=== PATIENT | female | born 1950 | race Hispanic/Latino ===

== ENCOUNTER 2018-08-06 23:08 | Inpatient (IN) | payer MEDICARE, OTHER ==
--- NOTE | 2018-08-07 00:17 | C.PDOC ---
History Of Present Illness 67 year old female presents to the ED for evaluation of pain to bilateral lower extremities. Patient states her ankles and feet have been erythematous, swollen and painful for the past four months and symptoms have been worsening. She describes her pain as a burning sensation. Patient is concerned about congestive heart failure. She denies fever, chills, chest pain, and shortness of breath at this time. Time Seen by Provider: 08/06/18 23:28 Chief Complaint (Nursing): Lower Extremity Problem/Injury History Per: Patient History/Exam Limitations: no limitations Onset/Duration Of Symptoms: Other (around 4 months ) Current Symptoms Are (Timing): Worse Additional History Per: Patient Past Medical History Reviewed: Historical Data, Nursing Documentation, Vital Signs Vital Signs: Last Vital Signs Temp 98.2 F 08/06/18 23:14 Pulse 88 08/06/18 23:14 Resp 20 08/06/18 23:14 BP 151/78 H 08/06/18 23:14 Pulse Ox 97 08/06/18 23:14 - Medical History PMH: HTN, Hypothyroidism Surgical History: No Surg Hx Family History: States: Unknown Family Hx - Social History Hx Alcohol Use: No Hx Substance Use: No - Immunization History Hx Tetanus Toxoid Vaccination: No Hx Influenza Vaccination: No Hx Pneumococcal Vaccination: No Review Of Systems Constitutional: Negative for: Fever, Chills Cardiovascular: Negative for: Chest Pain Respiratory: Negative for: Shortness of Breath Musculoskeletal: Positive for: Other (bilateral lower extremity pain. erythema, swelling, and pain to ankles and feet ) Physical Exam - Physical Exam Appears: Non-toxic, No Acute Distress, Unkempt Skin: Normal Color, Warm, Dry Head: Atraumatic, Normacephalic Eye(s): bilateral: Normal Inspection Oral Mucosa: Moist Neck: Supple Chest: Symmetrical, No Deformity, No Tenderness Cardiovascular: Rhythm Regular, No Murmur Respiratory: Normal Breath Sounds, No Rales, No Rhonchi, No Wheezing Gastrointestinal/Abdominal: Soft, No Tenderness, No Guarding, No Rebound, Other (well-healed, midline surgical scar ) Extremity: Tenderness (to bilateral ankles and feet ), Capillary Refill (less than 2 seconds ), Swelling (bilateral legs ), Other (significant erythema to bilateral lower legs and feet, extending to mid-guillory region. venous stasis and weeping wounds noted. no pitting edema. ) Pulses: Left Dorsalis Pedis: Normal, Right Dorsalis Pedis: Normal Neurological/Psych: Oriented x3, Normal Speech, Normal Cognition, Normal Sensation ED Course And Treatment - Laboratory Results Result Diagrams: 08/06/18 23:59 08/06/18 23:59 O2 Sat by Pulse Oximetry: 97 (on RA ) Pulse Ox Interpretation: Normal Medical Decision Making Medical Decision Making: Impression: 67 year old female with pain to bilateral lower extremities Plan: * bloodwork * reassess and disposition Progress: bloodwork ordered and reviewed. Toradol ivpb ordered for pain. Lab results discussed with patient. Will treat for cellulitis- clindamycin ivpb x1 dose ordered. Case discussed with Dr. Mitchell who accepts patient to her service. Disposition - Disposition Disposition: HOSPITALIZED Disposition Time: 23:28 Condition: STABLE - Clinical Impression Clinical Impression: Cellulitis of both lower extremities - Scribe Statement The provider has reviewed the documentation as recorded by the Scribe (Sapna Liang) Provider Attestation: All medical record entries made by the Scribe were at my direction and personally dictated by me. I have reviewed the chart and agree that the record accurately reflects my personal performance of the history, physical exam, medical decision making, and the department course for this patient. I have also personally directed, reviewed, and agree with the discharge instructions and disposition.
[2018-08-07 00:18] LABS: ALB/GLOB RATIO 1.2 (1.0-2.1); ALBUMIN 4.1 g/dL (3.5-5.0); ALT/SGPT 23 U/L (9-52); AST/SGOT 18 U/L (14-36); BASO # 0.1 K/uL (0.0-0.2); BASO % 0.6 % (0.0-2.0); BLOOD UREA NITROGEN 16 mg/dL (7-17); CALCIUM 9.9 mg/dl (8.6-10.4); EOS # 0.2 K/uL (0.0-0.7); EOS % 1.9 % (0.0-4.0); GFR NON-AFRICAN AMERICAN > 60; HEMOGLOBIN 11.3 g/dL (11.0-16.0); LYMPH % 28.4 % (20.0-40.0); MEAN CORPUSCULAR HEMOGLOBIN 27.4 pg (27.0-31.0); MEAN CORPUSCULAR HGB CONC 32.2 g/dL (33.0-37.0); MEAN PLATELET VOLUME 7.2 fL (7.2-11.7); MONO # 0.7 K/uL (0.0-0.8); MONO % 6.5 % (0.0-10.0); NEUT # 6.6 K/uL (1.8-7.0); NEUT % 62.6 % (50.0-75.0); RBC 4.11 Mil/uL (3.80-5.20); RED CELL DISTRIBUTION WIDTH 14.5 % (11.5-14.5); WHITE BLOOD COUNT 10.5 K/uL (4.8-10.8)
[2018-08-07 00:26] LABS: B-TYPE NATRIURETIC PEPTIDE 57.3 pg/mL (0-900)
[2018-08-07] MEDS ORDERED: Clindamycin 600mg/50ml NS 600 MG/50 ML BAG IVPB ONE (00:56)
[2018-08-07] MEDS ORDERED: Levothyroxine 75 MCG TAB PO SCH (06:30)
[2018-08-07 08:21] LABS: BASO # 0.1 K/uL (0.0-0.2); BASO % 0.7 % (0.0-2.0); EOS # 0.2 K/uL (0.0-0.7); EOS % 2.4 % (0.0-4.0); HEMOGLOBIN 10.4 g/dL (11.0-16.0); LYMPH # 2.7 K/uL (1.0-4.3); LYMPH % 32.4 % (20.0-40.0); MEAN CELL VOLUME 84.8 fL (81.0-99.0); MEAN CORPUSCULAR HEMOGLOBIN 28.2 pg (27.0-31.0); MEAN CORPUSCULAR HGB CONC 33.3 g/dL (33.0-37.0); MEAN PLATELET VOLUME 7.1 fL (7.2-11.7); MONO # 0.6 K/uL (0.0-0.8); MONO % 6.7 % (0.0-10.0); NEUT # 4.8 K/uL (1.8-7.0); NEUT % 57.8 % (50.0-75.0); RBC 3.7 Mil/uL (3.80-5.20); RED CELL DISTRIBUTION WIDTH 14.5 % (11.5-14.5); WHITE BLOOD COUNT 8.3 K/uL (4.8-10.8)
[2018-08-07 08:25] LABS: ALB/GLOB RATIO 1.1 (1.0-2.1); ALBUMIN 3.6 g/dL (3.5-5.0); ALT/SGPT 24 U/L (9-52); AST/SGOT 16 U/L (14-36); BLOOD UREA NITROGEN 17 mg/dL (7-17); CALCIUM 9.5 mg/dl (8.6-10.4); GFR NON-AFRICAN AMERICAN > 60
--- NOTE | 2018-08-07 11:35 | CP.PCM.PN ---
Subjective - Date & Time of Evaluation Date of Evaluation: 08/07/18 Time of Evaluation: 11:35 - Subjective Subjective: H&P dictated #[id number] Objective - Vital Signs/Intake and Output Vital Signs (last 24 hours): Temp Pulse Resp BP Pulse Ox 98.1 F 74 16 155/71 H 97 08/07/18 02:20 08/07/18 02:20 08/07/18 02:20 08/07/18 02:20 08/07/18 05:28 - Medications Medications: Current Medications Allopurinol (Zyloprim) 100 mg PO DAILY [facility] Last Admin: 08/07/18 10:08 Dose: 100 mg Amlodipine Besylate (Norvasc) 5 mg PO DAILY [facility] Last Admin: 08/07/18 10:08 Dose: 5 mg Heparin Sodium (Porcine) (Heparin) 5,000 units SC Q12 [facility] Last Admin: 08/07/18 10:08 Dose: 5,000 units Levothyroxine Sodium (Synthroid) 75 mcg PO DAILY@0630 [facility] Last Admin: 08/07/18 06:41 Dose: 75 mcg - Labs Labs: 08/07/18 07:59 08/07/18 07:59
[2018-08-07] MEDS ORDERED: Piperacill/Tazo 3.375gm in Dex 3.375 GM/50 ML BAG IVPB SCH (11:45)
[2018-08-07] MEDS: Piperacill/Tazo 3.375gm in Dex 3.375 GM/50 ML BAG IVPB SCH ×2 (13:46→21:52)
--- NOTE | 2018-08-07 14:45 | CP.PCM.CON ---
History of Present Illness - History of Present Illness History of Present Illness: 67 year old female with painful swelling and erythema both legs for several months which has progressively gotten worse despite conservative measures by PMD in [place] Denies DM but has elevated blood sugar measurement No fever or c [place] Denies chest pain cough oir SOB - Medical History PMH: HTN, Hypothyroidism Surgical History: No Surg Hx Family History: States: Unknown Family Hx Review of Systems - Review of Systems All systems: reviewed and no additional remarkable complaints except - Constitutional Constitutional: As Per HPI - EENT Eyes: absent: As Per HPI, Blind Spots, Blurred Vision, Change in Vision, Decreased Night Vision, Diplopia, Discharge, Dry Eye, Exophthalmos, Floaters, Irritation, Itchy Eyes, Loss of Peripheral Vision, Pain, Photophobia, Requires Corrective Lenses, Sees Flashes, Spots in Vision, Tunnel Vision, Other Visual Disturbances, Loss of Vision, Other Ears: absent: As Per HPI, Decreased Hearing, Ear Discharge, Ear Pain, Tinnitus, Abnormal Hearing, Disequilibrium, Dizziness, Other Nose/Mouth/Throat: absent: As Per HPI, Epistaxis, Nasal Congestion, Nasal Discharge, Nasal Obstruction, Nasal Trauma, Nose Pain, Post Nasal Drip, Sinus Pain, Sinus Pressure, Bleeding Gums, Change in Voice, Dental Pain, Dry Mouth, Dysphagia, Halitosis, Hoarsness, Lip Swelling, Mouth Lesions, Mouth Pain, Odynophagia, Sore Throat, Throat Swelling, Tongue Swelling, Facial Pain, Neck Pain, Neck Mass, Other - Breasts Breasts: absent: As Per HPI, Change in Shape, Mass, Pain, Nipple Discharge, Nipple Inversion, Skin Changes, Swelling, Other - Cardiovascular Cardiovascular: As Per HPI - Respiratory Respiratory: absent: As Per HPI, Cough, Dyspnea, Hemoptysis, Dyspnea on Exertion, Wheezing, Snoring, Stridor, Pain on Inspiration, Chest Congestion, Excessive Mucous Production, Change in Mucous Color, Pain with Coughing, Other - Gastrointestinal Gastrointestinal: absent: As Per HPI, Abdominal Pain, Belching, Bloating, Change in Bowel Habits, Change in Stool Character, Coffee Ground Emesis, Constipation, Cramping, Diarrhea, Dyspepsia, Dysphagia, Early Satiety, Excessive Flatus, Fecal Incontinence, Heartburn, Hematemesis, Hematochezia, Loose Stools, Melena, Nausea, Odynophagia, Temesmus, Vomiting, Other - Genitourinary Genitourinary: absent: As Per HPI, Change in Urinary Stream, Difficulty Urinating, Dysuria, Flank Pain, Hematuria, Pyuria, Nocturia, Urinary Incontinence, Urinary Frequency, Urinary Hesitance, Urinary Urgency, Voiding Freq/Small Amts, Freq UTI, Hx Renal/Bladder Calculi, Hx /Renal Surgery, Bladder Distension, Other - Reproductive: Female Reproductive:Female: absent: As Per HPI, Amenorrhea, Amenorrhea/ Control, Currently Menstual, Cycle <21 Days, Cycle >35 Days, Cycle Variable, Menses 1-7 Days, Menses >/= 8 Days, Menses Variable, Cycle > 4 Weeks Between, No Menses for 6 Months, Heavy Menses, Light Menses, Normal Menses, Spotting Between Cycles, S/P Hysterectomy, Menopausal, Post Menopausal, Premenarche, Abnormal Vaginal Bleeding, Dysmenorrhea, Dyspareunia, Genital Lesions, Genital Pruritis, Pelvic Pain, Prolapse Symptoms, Sexual Dysfunction, Vaginal Discharge, Vaginal Dryness, Vaginal Odor, Vaginal Pruritis, Other - Menstruation Menstruation: absent: As Per HPI, Amenorrhea, Amenorrhea/ Control, Currently Menstual, Cycle <21 Days, Cycle >35 Days, Cycle Variable, Menses 1-7 Days, Menses >/= 8 Days, Menses Variable, Cycle > 4 Weeks Between, No Menses for 6 Months, Heavy Menses, Light Menses, Normal Menses, Spotting Between Cycles, S/P Hysterectomy, Menopausal, Post Menopausal, Premenarche, Abnormal Vaginal Bleeding, Dysmenorrhea, Other - Musculoskeletal Musculoskeletal: As Per HPI - Integumentary Integumentary: As Per HPI, Skin Pain, Wounds - Neurological Neurological: absent: As Per HPI, Abnormal Gait, Abnormal Hearing, Abnormal Movements, Abnormal Speech, Behavioral Changes, Burning Sensations, Confusion, Convulsions, Disequilibrium, Dizziness, Numbness, Focal Weakness, Frequent Falls, Headaches, Lack of Coordination, Loss of Vision, Memory Loss, Paresthesias, Radicular Pain, Restless Legs, Sensory Deficit, Syncope, Tingling, Tremor, Vertigo, Weakness, Other Visual Disturbances, Other - Psychiatric Psychiatric: absent: As Per HPI, Abnormal Sleep Pattern, Anhedonia, Anxiety, Auditory Hallucinations, Behavioral Changes, Change in Appetite, Change in Libido, Confusion, Depression, Difficulty Concentrating, Hallucinations, Homicidal Ideation, Hopelessness, Irritability, Memory Loss, Mood Swings, Panic Attacks, Paranoia, Suicidal Ideation, Visual Hallucinations, Tactile Hallucinations, Other - Endocrine Endocrine: absent: As Per HPI, Change in Body Appearance, Change in Libido, Cold Intolorance, Deepening of Voice, Excessive Sweating, Fatigue, Flushing, Heat Intolorance, Increase in Ring/Shoe/Hat Size, Palpitations, Polydipsia, Polyphagia, Polyuria, Other - Hematologic/Lymphatic Hematologic: absent: As Per HPI, Easy Bleeding, Easy Bruising, Lymphadenopathy, Other Past Patient History - Past Medical History & Family History Past Medical History?: Yes - Past Social History Smoking Status: Never Smoked - CARDIAC Hx Hypertension: Yes - ENDOCRINE/METABOLIC Hx Hypothyroidism: Yes - MUSCULOSKELETAL/RHEUMATOLOGICAL Hx Falls: No - PSYCHIATRIC Hx Substance Use: No - SURGICAL HISTORY Hx Tubal Ligation: Yes (1981) Other/Comment: gallstone removal unknown year, before the tubal ligation - ANESTHESIA Hx Anesthesia: Yes Hx Anesthesia Reactions: No Hx Malignant Hyperthermia: No Has any member of the family had a problem w/ anesthesia?: No Meds Allergies/Adverse Reactions: Allergies Allergy/AdvReac Type Severity Reaction Status Date / Time No Known Allergies Allergy Unverified 08/06/18 23:22 - Medications Medications: Current Medications Allopurinol (Zyloprim) 100 mg PO DAILY [facility] Last Admin: 08/07/18 10:08 Dose: 100 mg Amlodipine Besylate (Norvasc) 5 mg PO DAILY [facility] Last Admin: 08/07/18 10:08 Dose: 5 mg Glipizide (Glucotrol) 2.5 mg PO ACB [facility] Heparin Sodium (Porcine) (Heparin) 5,000 units SC Q12 [facility] Last Admin: 08/07/18 10:08 Dose: 5,000 units Piperacillin Sod/Tazobactam Sod (Zosyn 3.375 Gm Iv Premix) 3.375 gm in 50 mls @ 100 mls/hr IVPB Q8H [facility]; Protocol Last Admin: 08/07/18 13:46 Dose: 100 mls/hr Vancomycin HCl 1,000 mg/ (Sodium Chloride) 250 mls @ 166.6 mls/hr IVPB Q12H [facility]; Protocol Insulin Human Regular (Novolin R) 0 unit SC ACHS [facility]; Protocol Levothyroxine Sodium (Synthroid) 100 mcg PO DAILY@0630 [facility] Physical Exam - Constitutional Appears: Non-toxic, No Acute Distress, Chronically Ill - Head Exam Head Exam: ATRAUMATIC, NORMAL INSPECTION, NORMOCEPHALIC - Eye Exam Eye Exam: EOMI, PERRL. absent: Scleral icterus - ENT Exam ENT Exam: Mucous Membranes Dry - Neck Exam Neck exam: Negative for: Lymphadenopathy - Respiratory Exam Respiratory Exam: Decreased Breath Sounds, Clear to Auscultation Bilateral - Cardiovascular Exam Cardiovascular Exam: REGULAR RHYTHM, +S1, +S2 - GI/Abdominal Exam GI & Abdominal Exam: Diminished Bowel Sounds, Soft. absent: Tenderness - Rectal Exam Rectal Exam: Deferred - Exam Exam: NORMAL INSPECTION - Extremities Exam Extremities exam: Positive for: pedal edema, tenderness, pedal pulses present. Negative for: calf tenderness, normal inspection - Back Exam Back exam: absent: CVA tenderness (L), CVA tenderness (R), paraspinal tenderness - Neurological Exam Neurological exam: Alert, CN II-XII Intact, Oriented x3, Reflexes Normal - Psychiatric Exam Psychiatric exam: Depressed - Skin Skin Exam: Dry, Erythema Results - Vital Signs Recent Vital Signs: Last Vital Signs Temp 98.1 F 08/07/18 02:20 Pulse 74 08/07/18 02:20 Resp 16 08/07/18 02:20 BP 155/71 H 08/07/18 02:20 Pulse Ox 97 08/07/18 05:28 - Labs Result Diagrams: 08/07/18 07:59 08/07/18 07:59 Labs: Laboratory Results - last 24 hr 08/06/18 08/06/18 08/06/18 23:34 23:59 23:59 WBC 10.5 RBC 4.11 Hgb 11.3 Hct 35.0 MCV 85.0 MCH 27.4 MCHC 32.2 L RDW 14.5 Plt Count 408 H MPV 7.2 Neut % (Auto) 62.6 Lymph % (Auto) 28.4 [place] % (Auto) 6.5 Eos % (Auto) 1.9 Baso % (Auto) 0.6 Neut # (Auto) 6.6 Lymph # (Auto) 3.0 [place] # (Auto) 0.7 Eos # (Auto) 0.2 Baso # (Auto) 0.1 Sodium 138 Potassium 4.0 Chloride 98 Carbon Dioxide 32 H Anion Gap 12 BUN 16 Creatinine 0.7 Est GFR ( Amer) > 60 Est GFR (Non-Af Amer) > 60 POC Glucose (mg/dL) 259 H Random Glucose 269 H Hemoglobin A1c Calcium 9.9 Total Bilirubin 0.4 AST 18 ALT 23 Alkaline Phosphatase 102 NT-Pro-B Natriuret Pep 57.3 Total Protein 7.5 Albumin 4.1 Globulin 3.4 Albumin/Globulin Ratio 1.2 TSH 3rd Generation 08/07/18 08/07/18 08/07/18 07:59 07:59 07:59 WBC 8.3 RBC 3.70 L Hgb 10.4 L Hct 31.3 L MCV 84.8 MCH 28.2 MCHC 33.3 RDW 14.5 Plt Count 366 MPV 7.1 L Neut % (Auto) 57.8 Lymph % (Auto) 32.4 [place] % (Auto) 6.7 Eos % (Auto) 2.4 Baso % (Auto) 0.7 Neut # (Auto) 4.8 Lymph # (Auto) 2.7 [place] # (Auto) 0.6 Eos # (Auto) 0.2 Baso # (Auto) 0.1 Sodium 140 Potassium 4.0 Chloride 101 Carbon Dioxide 32 H Anion Gap 11 BUN 17 Creatinine 0.7 Est GFR ( Amer) > 60 Est GFR (Non-Af Amer) > 60 POC Glucose (mg/dL) Random Glucose 181 H Hemoglobin A1c 8.5 H Calcium 9.5 Total Bilirubin 0.4 AST 16 ALT 24 Alkaline Phosphatase 90 NT-Pro-B Natriuret Pep Total Protein 6.8 Albumin 3.6 Globulin 3.2 Albumin/Globulin Ratio 1.1 TSH 3rd Generation 18.10 H Assessment & Plan (1) Cellulitis of both lower extremities Status: Acute - Assessment and Plan (Free Text) Assessment: severe cellulitis likely secondary to venous stasis/ stasis dermatitis r/o PVD no evidence of sepsis, gangrene , OM at present IV antibiotics chosen empirically arterial and venous dopplers pending prognosis guarded
[2018-08-07] MEDS ORDERED: Vancomycin 1 gm/NS 200 ml 1 GM/200 ML BAG IVPB SCH (16:00)
--- NOTE | 2018-08-07 16:30 | RAD ---
Date of service: 08/07/2018 HISTORY: admit COMPARISON: Comparison is made with 09/13/2015 TECHNIQUE: Chest PA and lateral FINDINGS: LUNGS: No active pulmonary disease. PLEURA: No significant pleural effusion identified. No pneumothorax apparent. CARDIOVASCULAR: No aortic atherosclerotic calcification present. Normal cardiac size. No pulmonary vascular congestion. OSSEOUS STRUCTURES: No significant abnormalities. VISUALIZED UPPER ABDOMEN: Normal. OTHER FINDINGS: None. IMPRESSION: No active disease.
--- NOTE | 2018-08-07 16:50 | RAD ---
Date of service: 08/07/2018 PROCEDURE: Radiographs of the bilateral Tibiae and Fibulae. HISTORY: cellulitis COMPARISON: None available. TECHNIQUE: Frontal and lateral views obtained. FINDINGS: BONES: RIGHT TIBIA: No fracture or destructive lesion. LEFT TIBIA: No fracture or destructive lesion. JOINT SPACES: RIGHT TIBIA: Normal. LEFT TIBIA: Normal. SOFT TISSUES: RIGHT TIBIA: Normal. LEFT TIBIA: Normal. OTHER FINDINGS: None. IMPRESSION: Unremarkable radiographs of the bilateral tibia and fibula.
[2018-08-07 18:23] LABS: SQUAMOUS EPITHIAL 4 /hpf (0-5); URINE BACTERIA RARE (<OCC); URINE BILIRUBIN NEGATIVE (NEGATIVE); URINE BLOOD NEGATIVE (NEGATIVE); URINE CALCIUM OXALATE CRYSTALS MOD /hpf (<OCC); URINE CLARITY Hazy (Clear); URINE COLOR Yellow (YELLOW); URINE GLUCOSE (UA) NORMAL (Normal); URINE LEUKOCYTE ESTERASE NEG Leu/uL (Negative); URINE PROTEIN NEGATIVE (NEGATIVE); URINE UROBILINOGEN NORMAL mg/dL (0.2-1.0)
[2018-08-07] MEDS: (Novolin R) Insulin Human Regular 100 units/ml vial SC SCH ×2 (18:26→21:52)
[2018-08-08] MEDS: Piperacill/Tazo 3.375gm in Dex 3.375 GM/50 ML BAG IVPB SCH ×3 (05:05→22:10)
[2018-08-08] MEDS: Levothyroxine 100 MCG TAB PO SCH ×2 (05:47→05:51)
[2018-08-08] MEDS: GlipiZIDE 2.5 mg Tab PO SCH (07:54)
[2018-08-08] MEDS: (Novolin R) Insulin Human Regular 100 units/ml vial SC SCH ×4 (07:56→22:14)
--- NOTE | 2018-08-08 10:41 | HP ---
CHIEF COMPLAINT: Bilateral lower extremity leg swelling, pain and increasing redness, progressively getting worse over the past three to four months. HISTORY OF PRESENT ILLNESS: Ms. Aldana is a 67-year-old female with past medical history of hypertension, hypothyroidism. Has been following up with Dr. Camp from [place]. Came into the ED for evaluation of worsening lower extremity redness, swelling, and pain. History is obtained from the patient. As per the patient, she has been having worsening redness of the bilateral lower extremities below the knee with increased swelling, redness, and oozing and it was more painful and not able to ambulate yesterday which made her come to the emergency room. She denied any fever. Denied any headache or dizziness. Denied any chest pain, shortness of breath, or wheezing. Denied any nausea, vomiting, abdominal pain, diarrhea, or constipation. Denied any other neurologic symptoms. Denied any urinary symptoms. As per the patient, she was evaluated by Dr. Camp about two months ago. Had all the routine blood works done. As per her, all those tests were okay. PAST MEDICAL HISTORY: Hypothyroidism, hypertension. PAST SURGICAL HISTORY: Underwent cholecystectomy many years ago and tubal ligation. FAMILY HISTORY: Diabetes mellitus in mother and grandmother. Cancer and heart disease runs in the family. PERSONAL HISTORY: She is a , having two children, living alone. She works in post office. SOCIAL HISTORY: Denies any smoking, alcohol, or drug abuse. ALLERGIES: NO KNOWN DRUG ALLERGIES. HOME MEDICATIONS: Include amlodipine 5 mg daily, Synthroid 75 mcg daily, Lasix 20 mg daily, allopurinol 100 mg daily. REVIEW OF SYSTEMS: As described in history of present illness. All other systems reviewed and were found to be negative. PHYSICAL EXAMINATION: GENERAL: Elderly female, lying in bed, in no acute distress. VITAL SIGNS: Blood pressure 151/78, pulse 88, respirations 20, temperature 98.2 degrees Fahrenheit, O2 saturations 97% on room air. HEENT: Pupils equal, round, reacting to light and accommodation. Extraocular muscles intact. No icterus. No pallor. No oral thrush. No pharyngeal congestion. NECK: Supple. No JVD. LUNGS: Bilateral vesicular breath sounds. No wheezing. No rhonchi. CARDIOVASCULAR SYSTEM: S1 and S2 present, regular. ABDOMEN: Soft, nontender. Bowel sounds present. No guarding, no rigidity, no rebound tenderness noted. CENTRAL NERVOUS SYSTEM: Alert, awake, oriented x3. No focal deficits noted. EXTREMITIES: Bilateral lower extremity erythema present below the knees, extending into the foot. Tenderness present. Erythema present. Swelling present. Minimal oozing. Poorly palpable pulses. LABORATORY DATA: Labs done from the ED: WBC 10.5, hemoglobin 11.3, hematocrit 35, platelets 408. Sodium 138, potassium 4.2, chloride 98, bicarb 32, BUN 16, creatinine 0.7, glucose 259, hemoglobin A1c 8.5, calcium 9.9. AST 18, ALT 23, alkaline phosphatase 102. ProBNP is 57.3. Total protein 7.5, albumin 4.1. TSH 18.1. No EKG done. No foot x-ray done. ASSESSMENT: Elderly female with history of hypothyroidism, hypertension who has been following up with Dr. Camp from [place], came into the emergency department with 3 to 4-month history of bilateral lower extremity swelling, erythema, and increasing pain. In the emergency department, the patient was found to be having elevated glucose levels and her swelling is consistent with cellulitis, and the patient is being admitted for further management. 1. Bilateral lower extremity cellulitis with chronic venous changes. 2. Rule out peripheral arterial disease. 3. Newly diagnosed diabetes mellitus. 4. Worsening hypothyroidism. 5. Hypertension. PLAN: The patient is being admitted to the medical floor. We will give Zosyn 3.375 g IV every 8 hours along with vancomycin 1 g daily. Check arterial and venous Dopplers. Check blood cultures. Check EKG, chest x-ray, foot x-ray and check ultrasound of the abdomen. We will start glipizide 2.5 mg daily. Check Accu-Chek every before meals and at bedtime with sliding scale coverage. Increase Synthroid to 100 mcg daily. We will continue with DVT and GI prophylaxis. We will consider podiatry consult. We will request ID consult with Dr. Burch. We will add further recommendation as her clinical course progresses. Harris Mitchell MD
--- NOTE | 2018-08-08 11:05 | CP.PCM.PN ---
Subjective - Date & Time of Evaluation Date of Evaluation: 08/08/18 Time of Evaluation: 09:00 - Subjective Subjective: afeb cultures neg thus far Objective - Vital Signs/Intake and Output Vital Signs (last 24 hours): Temp Pulse Resp BP Pulse Ox 97.9 F 76 18 160/65 H 95 08/08/18 07:25 08/08/18 07:25 08/08/18 07:25 08/08/18 07:25 08/08/18 07:25 Intake and Output: 08/08/18 08/08/18 06:59 18:59 Intake Total 350 Balance 350 - Medications Medications: Current Medications Allopurinol (Zyloprim) 100 mg PO DAILY [facility] Last Admin: 08/07/18 10:08 Dose: 100 mg Amlodipine Besylate (Norvasc) 5 mg PO DAILY [facility] Last Admin: 08/07/18 10:08 Dose: 5 mg Glipizide (Glucotrol) 2.5 mg PO ACB [facility] Last Admin: 08/08/18 07:54 Dose: Not Given Heparin Sodium (Porcine) (Heparin) 5,000 units SC Q12 [facility] Last Admin: 08/07/18 21:52 Dose: 5,000 units Piperacillin Sod/Tazobactam Sod (Zosyn 3.375 Gm Iv Premix) 3.375 gm in 50 mls @ 100 mls/hr IVPB Q8H [facility]; Protocol Last Admin: 08/08/18 05:05 Dose: 100 mls/hr Vancomycin HCl 1,000 mg/ (Sodium Chloride) 250 mls @ 166.6 mls/hr IVPB Q12H [facility] ; Protocol Last Admin: 08/08/18 05:45 Dose: 166.6 mls/hr Insulin Human Regular (Novolin R) 0 unit SC ACHS [facility]; Protocol Last Admin: 08/08/18 07:56 Dose: Not Given Levothyroxine Sodium (Synthroid) 100 mcg PO DAILY@0630 [facility] Last Admin: 08/08/18 05:51 Dose: 100 mcg - Labs Labs: 08/07/18 07:59 08/07/18 07:59 - Constitutional Appears: Non-toxic, Chronically Ill - Head Exam Head Exam: NORMOCEPHALIC - Eye Exam Eye Exam: absent: Scleral icterus - ENT Exam ENT Exam: Mucous Membranes Dry - Neck Exam Neck Exam: absent: Lymphadenopathy - Respiratory Exam Respiratory Exam: Decreased Breath Sounds - Cardiovascular Exam Cardiovascular Exam: REGULAR RHYTHM - GI/Abdominal Exam GI & Abdominal Exam: Distended, Soft - Rectal Exam Rectal Exam: Deferred - Exam Exam: NORMAL INSPECTION - Extremities Exam Extremities Exam: Pedal Edema. absent: Calf Tenderness, Joint Swelling - Back Exam Back Exam: absent: CVA tenderness (L), CVA tenderness (R), paraspinal tenderness - Neurological Exam Neurological Exam: Alert, Awake, CN II-XII Intact, Oriented x3 - Psychiatric Exam Psychiatric exam: Depressed - Skin Skin Exam: Dry Assessment and Plan (1) Cellulitis of both lower extremities Status: Acute - Assessment and Plan (Free Text) Assessment: cont iv rx and wound care as ordered
--- NOTE | 2018-08-08 11:34 | US ---
Abdominal ultrasound HISTORY: Follow-up. Abdominal pain. Comparison: None available. Technique: Real-time sonography was performed through the abdomen. Findings: Liver: 20.4 centimeters in length. Increased echogenicity of the hepatic parenchymal cortex suggestive for fatty infiltration versus hepatic parenchymal disease. Clinical correlation. Gallbladder: Prior cholecystectomy. Common bile duct measures 4.5 millimeters, within normal limits. Limited visualization of the pancreas. Spleen measures 11.7 centimeters in length, within normal limits. Visualized aorta and IVC are preserved. Right kidney: 13.3 x 4.6 x 4.5 centimeters. No calculi or hydronephrosis. Left Kidney: 12.3 x 6.3 x 5.7 centimeters. No calculi or hydronephrosis. Impression: 1. Prominent liver measuring 20.4 centimeters in length. Increased echogenicity of the hepatic parenchymal cortex suggestive for fatty infiltration versus hepatic parenchymal disease. Clinical correlation. 2. Prior cholecystectomy. 3. Limited visualization of the pancreas.
--- NOTE | 2018-08-08 11:53 | CP.PCM.PN ---
Subjective - Date & Time of Evaluation Date of Evaluation: 08/08/18 Time of Evaluation: 11:53 - Subjective Subjective: Progress note dictated #[id number] Objective - Vital Signs/Intake and Output Vital Signs (last 24 hours): Temp Pulse Resp BP Pulse Ox 97.9 F 76 18 160/65 H 95 08/08/18 07:25 08/08/18 07:25 08/08/18 07:25 08/08/18 07:25 08/08/18 07:25 Intake and Output: 08/08/18 08/08/18 06:59 18:59 Intake Total 350 Balance 350 - Medications Medications: Current Medications Allopurinol (Zyloprim) 100 mg PO DAILY [facility] Last Admin: 08/08/18 11:45 Dose: 100 mg Amlodipine Besylate (Norvasc) 10 mg PO DAILY [facility] Glipizide (Glucotrol) 2.5 mg PO ACB [facility] Last Admin: 08/08/18 07:54 Dose: Not Given Heparin Sodium (Porcine) (Heparin) 5,000 units SC Q12 [facility] Last Admin: 08/08/18 11:45 Dose: 5,000 units Piperacillin Sod/Tazobactam Sod (Zosyn 3.375 Gm Iv Premix) 3.375 gm in 50 mls @ 100 mls/hr IVPB Q8H [facility]; Protocol Last Admin: 08/08/18 05:05 Dose: 100 mls/hr Vancomycin HCl 1,000 mg/ (Sodium Chloride) 250 mls @ 166.6 mls/hr IVPB Q12H [facility]; Protocol Last Admin: 08/08/18 05:45 Dose: 166.6 mls/hr Insulin Human Regular (Novolin R) 0 unit SC ACHS [facility]; Protocol Last Admin: 08/08/18 07:56 Dose: Not Given Levothyroxine Sodium (Synthroid) 100 mcg PO DAILY@0630 [facility] Last Admin: 08/08/18 05:51 Dose: 100 mcg - Labs Labs: 08/07/18 07:59 08/07/18 07:59
--- NOTE | 2018-08-08 12:17 | VASCLAB ---
Date of service: 08/08/2018 PROCEDURE: Lower Extremity Venous Duplex Exam. HISTORY: Pain, Swelling, r/o dvt PRIORS: None. TECHNIQUE: Bilateral common femoral, femoral, popliteal and posterior tibial, peroneal and great saphenous veins were evaluated. Flow was assessed with color Doppler, compressibility, assessment of phasic flow and augmentation response. Report prepared by ADALGISA [place] FINDINGS: RIGHT: 1. Common Femoral Vein: 1.1. Compressibility - Fully compressible: Thrombus - None : Flow - Phasic: Augmentation -Normal: Reflux - None. 2. Femoral Vein: 2.1. Compressibility - Fully compressible: Thrombus - None : Flow - Phasic: Augmentation -Normal: Reflux - None. 3. Popliteal Vein: 3.1. Compressibility - Fully compressible: Thrombus - None : Flow - Phasic: Augmentation -Normal: Reflux - None. 4. Posterior Tibial Vein: 4.1. Unable to visualize due to swelling. 5. Peroneal Vein: 5.1. Unable to visualize due to swelling. 6. Great Saphenous Vein: 6.1. Compressibility - Fully compressible: Thrombus - None: Flow - Phasic: Augmentation - Normal: Reflux - None. LEFT: 1. Common Femoral Vein: 1.1. Compressibility - Fully compressible: Thrombus - None: Flow - Phasic: Augmentation -Normal: Reflux - None. 2. Femoral Vein: 2.1. Compressibility - Fully compressible: Thrombus - None: Flow - Phasic: Augmentation -Normal: Reflux - None. 3. Popliteal Vein: 3.1. Compressibility - Fully compressible: Thrombus - None : Flow - Phasic: Augmentation -Normal: Reflux - None. 4. Posterior Tibial Vein: 4.1. Unable to visualize due to swelling. 5. Peroneal Vein: 5.1. Unable to visualize due to swelling. 6. Great Saphenous Vein: 6.1. Compressibility - Fully compressible: Thrombus - None: Flow - Phasic: Augmentation - Normal: Reflux - None. OTHER FINDINGS: Bilateral calf veins were not visualized due to edema. IMPRESSION: No evidence of deep or superficial vein thrombosis of bilateral lower extremities, for the examined veins.
--- NOTE | 2018-08-08 12:18 | VASCLAB ---
Date of service: 08/08/2018 STUDY DESCRIPTION: Lower Extremity Arterial Exam (PVR). HISTORY: Cellulitis PRIORS: None. TECHNIQUE: Pulse volume recording waveforms and segmental pressures of bilateral lower extremities at multiple levels were obtained. Ankle Brachial Indices (ABIs) were calculated. Report prepared by ADALGISA [place] RIGHT LOWER EXTREMITY: * Brachial artery: Pressure - 173 mmHg. * High thigh: Pressure - >220 mmHg: Ratio - N/C: PVR waveform - Pulsatile * Low thigh: Pressure - >220 mmHg: Ratio - N/C PVR waveform: Pulsatile * Calf: Pressure - >220 mmHg: Ratio - N/C PVR waveform: Pulsatile * Posterior tibial Artery: Pressure - 211 mmHg: Ratio - 1.15 PVR waveform: Pulsatile * Dorsalis pedis Artery: Pressure - 181 mmHg: Ratio - 0.98 PVR waveform: Pulsatile Ankle brachial index (MARCE): 1.15 LEFT LOWER EXTREMITY: * Brachial artery: Pressure - 184 mmHg. * High thigh: Pressure - >220 mmHg: Ratio - N/C: PVR waveform - Pulsatile * Low thigh: Pressure - >220 mmHg: Ratio - N/C PVR waveform: Pulsatile * Calf: Pressure - >220 mmHg: Ratio - N/C PVR waveform: Pulsatile * Posterior tibial Artery: Pressure - 212 mmHg: Ratio - 1.15 PVR waveform: Pulsatile * Dorsalis pedis Artery: Pressure - 192 mmHg: Ratio - 1.04 PVR waveform: Pulsatile Ankle brachial index (MARCE): 1.15 OTHER FINDINGS: Normal arterial PVR waveforms and normal ankle brachial indices, suggesting normal arterial perfusion, at rest. IMPRESSION: Right: There was no evidence of hemodynamically significant arterial insufficiency in the right lower extremity. Left: There was no evidence of hemodynamically significant arterial insufficiency in the left lower extremity.
--- NOTE | 2018-08-09 01:56 | PN ---
DATE: 08/08/2018 SUBJECTIVE: The patient was seen and examined at bedside. The patient is feeling slightly better. Less pain in the lower extremities. Denies any other new complaints. PHYSICAL EXAMINATION: GENERAL: Elderly female lying in bed in no acute distress. VITAL SIGNS: Blood pressure 160/65, pulse 76, respirations 18, temperature 97.9 degrees Fahrenheit, O2 sat is 95% on room air. HEENT: Pupils equal, round, reacting to light and accommodation. Extraocular muscles are intact. No icterus. No pallor. No oral thrush. No pharyngeal congestion. NECK: Supple. No JVD. LUNGS: Bilateral vesicular breath sounds. No wheezing. No rhonchi. CARDIOVASCULAR SYSTEM: S1 and S2 present, regular. ABDOMEN: Soft, nontender. Bowel sounds present. No guarding. No rigidity. No rebound tenderness noted. CENTRAL NERVOUS SYSTEM: Alert, awake, oriented x3. No focal deficits noted. EXTREMITIES: Bilateral lower extremity erythema, slightly better than yesterday. Swelling present. Tenderness present. Multiple healing ulcers present. MEDICATIONS: Include amlodipine 10 mg daily, glipizide 2.5 mg daily, heparin 5000 units subcutaneous every 12 hours, Synthroid 100 mcg daily, Zosyn 3.375 g IV every 8 hours, vancomycin 1 g IV every 12 hours. LABORATORY DATA: Accu-Cheks today 195, 179, 158, 142. UA is negative. Blood cultures, urine culture negative so far. Lower extremity arterial Doppler, no evidence of deep or superficial vein thrombosis of bilateral lower extremities. Arterial Doppler negative. Ultrasound of the abdomen, prominent liver, increased echogenicity suggestive of fatty infiltration. ASSESSMENT AND PLAN: Elderly female with history of hypertension, gout, hypothyroidism, admitted for bilateral lower extremity cellulitis. Arterial and venous Dopplers are negative for any peripheral artery disease or thrombosis. Newly diagnosed diabetes mellitus. Blood pressure is high. The patient claims that she has been taking amlodipine 10 mg at home. Will continue with 10 mg of amlodipine daily. We will restart Lasix 20 mg daily in the morning. Continue with Synthroid. Repeat hemoglobin A1c. We will continue with Accu-Chek before meals and bedtime. We will follow up with Dr. Burch regarding the length of intravenous antibiotics. If the patient is better, the patient would like to be transferred to subacute rehab. We will request drug abuse social worker for discharge planning. Harris Mitchell MD Job # [id number]
[2018-08-09] MEDS: Piperacill/Tazo 3.375gm in Dex 3.375 GM/50 ML BAG IVPB SCH ×3 (05:37→22:06)
[2018-08-09] MEDS: Levothyroxine 100 MCG TAB PO SCH (05:44)
[2018-08-09 07:53] LABS: BASO # 0.1 K/uL (0.0-0.2); BASO % 0.8 % (0.0-2.0); EOS # 0.2 K/uL (0.0-0.7); EOS % 2.2 % (0.0-4.0); HEMOGLOBIN 10.7 g/dL (11.0-16.0); LYMPH # 2.3 K/uL (1.0-4.3); LYMPH % 29.5 % (20.0-40.0); MEAN CELL VOLUME 84.7 fL (81.0-99.0); MEAN CORPUSCULAR HEMOGLOBIN 27.8 pg (27.0-31.0); MEAN CORPUSCULAR HGB CONC 32.8 g/dL (33.0-37.0); MONO # 0.5 K/uL (0.0-0.8); NEUT # 4.8 K/uL (1.8-7.0); NEUT % 61.5 % (50.0-75.0); RBC 3.84 Mil/uL (3.80-5.20); RED CELL DISTRIBUTION WIDTH 14.7 % (11.5-14.5); WHITE BLOOD COUNT 7.8 K/uL (4.8-10.8)
[2018-08-09] MEDS: (Novolin R) Insulin Human Regular 100 units/ml vial SC SCH ×4 (08:13→22:32)
[2018-08-09 08:14] LABS: ALBUMIN 3.4 g/dL (3.5-5.0); ALT/SGPT 24 U/L (9-52); AST/SGOT 21 U/L (14-36); BLOOD UREA NITROGEN 16 mg/dL (7-17); CALCIUM 8.7 mg/dl (8.6-10.4); GFR NON-AFRICAN AMERICAN > 60
[2018-08-09] MEDS: GlipiZIDE 2.5 mg Tab PO SCH ×2 (08:14→08:35)
--- NOTE | 2018-08-09 11:13 | CP.PCM.PN ---
Subjective - Date & Time of Evaluation Date of Evaluation: 08/09/18 Time of Evaluation: 11:13 - Subjective Subjective: Progress note dictated # [id number] Objective - Vital Signs/Intake and Output Vital Signs (last 24 hours): Temp Pulse Resp BP Pulse Ox 98 F 74 20 160/68 H 95 08/09/18 07:00 08/09/18 07:00 08/09/18 07:00 08/09/18 07:00 08/09/18 07:00 Intake and Output: 08/09/18 08/09/18 06:59 18:59 Intake Total 900 Balance 900 - Medications Medications: Current Medications Allopurinol (Zyloprim) 100 mg PO DAILY [facility] Last Admin: 08/09/18 09:39 Dose: 100 mg Amlodipine Besylate (Norvasc) 10 mg PO DAILY [facility] Last Admin: 08/09/18 09:39 Dose: 10 mg Glipizide (Glucotrol) 2.5 mg PO ACB [facility] Last Admin: 08/09/18 08:35 Dose: Not Given Heparin Sodium (Porcine) (Heparin) 5,000 units SC Q12 [facility] Last Admin: 08/09/18 09:39 Dose: 5,000 units Piperacillin Sod/Tazobactam Sod (Zosyn 3.375 Gm Iv Premix) 3.375 gm in 50 mls @ 100 mls/hr IVPB Q8H [facility]; Protocol Last Admin: 08/09/18 05:37 Dose: 100 mls/hr Vancomycin HCl 1,000 mg/ (Sodium Chloride) 250 mls @ 166.6 mls/hr IVPB Q12H [facility]; Protocol Last Admin: 08/09/18 05:41 Dose: 166.6 mls/hr Insulin Human Regular (Novolin R) 0 unit SC ACHS [facility]; Protocol Last Admin: 08/09/18 08:13 Dose: 1 units Levothyroxine Sodium (Synthroid) 100 mcg PO DAILY@0630 [facility] Last Admin: 08/09/18 05:44 Dose: 100 mcg - Labs Labs: 08/09/18 07:47 08/09/18 07:47
--- NOTE | 2018-08-09 11:23 | CP.PCM.PN ---
Subjective - Date & Time of Evaluation Date of Evaluation: 08/09/18 Time of Evaluation: 08:00 - Subjective Subjective: afeb less pain and swelling need min 10 days IV rx with close follow up Objective - Vital Signs/Intake and Output Vital Signs (last 24 hours): Temp Pulse Resp BP Pulse Ox 98 F 74 20 160/68 H 95 08/09/18 07:00 08/09/18 07:00 08/09/18 07:00 08/09/18 07:00 08/09/18 07:00 Intake and Output: 08/09/18 08/09/18 06:59 18:59 Intake Total 900 Balance 900 - Medications Medications: Current Medications Allopurinol (Zyloprim) 100 mg PO DAILY [facility] Last Admin: 08/09/18 09:39 Dose: 100 mg Amlodipine Besylate (Norvasc) 10 mg PO DAILY [facility] Last Admin: 08/09/18 09:39 Dose: 10 mg Glipizide (Glucotrol) 2.5 mg PO ACB [facility] Last Admin: 08/09/18 08:35 Dose: Not Given Heparin Sodium (Porcine) (Heparin) 5,000 units SC Q12 [facility] Last Admin: 08/09/18 09:39 Dose: 5,000 units Piperacillin Sod/Tazobactam Sod (Zosyn 3.375 Gm Iv Premix) 3.375 gm in 50 mls @ 100 mls/hr IVPB Q8H [facility]; Protocol Last Admin: 08/09/18 05:37 Dose: 100 mls/hr Vancomycin HCl 1,000 mg/ (Sodium Chloride) 250 mls @ 166.6 mls/hr IVPB Q12H [facility]; Protocol Last Admin: 08/09/18 05:41 Dose: 166.6 mls/hr Insulin Human Regular (Novolin R) 0 unit SC ACHS [facility]; Protocol Last Admin: 08/09/18 08:13 Dose: 1 units Levothyroxine Sodium (Synthroid) 100 mcg PO DAILY@0630 [facility] Last Admin: 08/09/18 05:44 Dose: 100 mcg - Labs Labs: 08/09/18 07:47 08/09/18 07:47 - Constitutional Appears: Non-toxic, Chronically Ill - Head Exam Head Exam: NORMOCEPHALIC - Eye Exam Eye Exam: absent: Scleral icterus - ENT Exam ENT Exam: Mucous Membranes Dry - Neck Exam Neck Exam: absent: Lymphadenopathy - Respiratory Exam Respiratory Exam: Decreased Breath Sounds - Cardiovascular Exam Cardiovascular Exam: REGULAR RHYTHM - GI/Abdominal Exam GI & Abdominal Exam: Distended, Soft. absent: Tenderness - Rectal Exam Rectal Exam: Deferred - Exam Exam: NORMAL INSPECTION - Extremities Exam Extremities Exam: Pedal Edema, Tenderness - Back Exam Back Exam: absent: CVA tenderness (L), CVA tenderness (R) - Neurological Exam Neurological Exam: Alert, Awake, Oriented x3 - Psychiatric Exam Psychiatric exam: Depressed - Skin Skin Exam: Dry Assessment and Plan (1) Cellulitis of both lower extremities Status: Acute - Assessment and Plan (Free Text) Assessment: cont iv rx for min 10 days
[2018-08-09] MEDS: Ammonium Lactate 12% Lotion (225 g) EXT SCH ×3 (14:00→22:06)
--- NOTE | 2018-08-09 23:35 | PN ---
DATE: 08/09/2018 SUBJECTIVE: The patient was seen and examined at bedside. The patient is feeling slightly better. Pain in the lower extremities is better. Denies any new complaints. PHYSICAL EXAMINATION GENERAL: An elderly female lying in bed in no acute distress. VITAL SIGNS: Blood pressure 149/71, pulse 82, respirations 20, temperature 97.8 degrees Fahrenheit, O2 sat is 95% on room air. HEENT: Pupils equal, round, reacting to light and accommodation. Extraocular muscles intact. No icterus. No pallor. No oral thrush. No pharyngeal congestion. NECK: Supple. No JVD. LUNGS: Bilateral vesicular breath sounds. No wheezing. No rhonchi. CARDIOVASCULAR SYSTEM: S1 and S2 present, regular. ABDOMEN: Soft, nontender. Bowel sounds present. No guarding. No rigidity. No rebound tenderness noted. CENTRAL NERVOUS SYSTEM: Alert, awake, oriented x3. No focal deficits noted. EXTREMITIES: Bilateral lower extremity erythema, improving. Multiple ulcerations healing. Palpable peripheral pulses. MEDICATIONS: Include allopurinol 100 mg daily, Norvasc 10 mg daily, Lasix 20 mg daily, glipizide 2.5 mg daily, heparin 5000 units subcutaneously every 12 hours, Lac-Hydrin cream, Synthroid 100 mcg daily, Zosyn 3.375 g IV every 8 hours, vancomycin 1 g IV every 12 hours. LABORATORY DATA: Labs done from today; WBC 7.8, hemoglobin 10.7, hematocrit 32.6, platelets 372. Sodium 138, potassium 4, chloride 104, bicarb 27, BUN 16, creatinine 0.8, glucose 157 and calcium 8.7. Hemoglobin A1c 8.6. Liver function test within normal limits, vancomycin trough 9.3. Blood cultures and urine culture negative so far. ASSESSMENT AND PLAN: An elderly female with history of hypertension, hypothyroidism, gout admitted for bilateral lower extremity cellulitis with chronic venous changes and newly diagnosed diabetes mellitus. Her cellulitis is improving on Zosyn and vancomycin. Blood pressure is high, on Norvasc, we will restart her Lasix 20 mg daily. All the cultures are negative so far. Accu-Cheks are fair with glipizide. Continue with current antibiotics. The patient claims that she does not have a place to go. Discussed with social work professor, discussed with Dr. Burch recommending IV antibiotics for at least 10 days. professional services consultant to make arrangements for subacute rehab placement. PICC line requested. We will continue with physical therapy. We will add further recommendation as her clinical course progresses. Harris Mitchell MD
[2018-08-10] MEDS: Piperacill/Tazo 3.375gm in Dex 3.375 GM/50 ML BAG IVPB SCH ×3 (05:03→22:14)
[2018-08-10] MEDS: Levothyroxine 100 MCG TAB PO SCH ×2 (05:52→05:58)
[2018-08-10] MEDS: GlipiZIDE 2.5 mg Tab PO SCH (08:00)
[2018-08-10] MEDS: (Novolin R) Insulin Human Regular 100 units/ml vial SC SCH ×4 (08:15→21:24)
[2018-08-10] MEDS: Ammonium Lactate 12% Lotion (225 g) EXT SCH ×4 (10:15→22:14)
--- NOTE | 2018-08-10 10:28 | RAD ---
Date of service: 08/10/2018 HISTORY: verify right PICC COMPARISON: 08/07/2018 FINDINGS: LUNGS: No active pulmonary disease. PLEURA: No significant pleural effusion identified, no pneumothorax apparent. CARDIOVASCULAR: No aortic atherosclerotic calcification present. Normal cardiac size. No congestive change. New right PICC catheter terminates at the level of the cavoatrial junction. OSSEOUS STRUCTURES: No significant abnormalities. VISUALIZED UPPER ABDOMEN: Normal. OTHER FINDINGS: None. IMPRESSION: New right PICC catheter terminates at the level of the cavoatrial junction. No infiltrate.
--- NOTE | 2018-08-10 12:18 | CP.PCM.PN ---
Subjective - Date & Time of Evaluation Date of Evaluation: 08/10/18 Time of Evaluation: 12:18 - Subjective Subjective: Progress note dictated #[id number] Objective - Vital Signs/Intake and Output Vital Signs (last 24 hours): Temp Pulse Resp BP Pulse Ox 97.7 F 69 20 151/74 H 97 08/10/18 07:15 08/10/18 07:15 08/10/18 07:15 08/10/18 11:25 08/10/18 07:15 Intake and Output: 08/10/18 08/10/18 06:59 18:59 Intake Total 340 Balance 340 - Medications Medications: Current Medications Allopurinol (Zyloprim) 100 mg PO DAILY [facility] Last Admin: 08/10/18 11:24 Dose: 100 mg Amlodipine Besylate (Norvasc) 10 mg PO DAILY [facility] Last Admin: 08/10/18 11:25 Dose: 10 mg Furosemide (Lasix) 20 mg PO DAILY [facility] Last Admin: 08/10/18 11:25 Dose: 20 mg Glipizide (Glucotrol) 2.5 mg PO ACB [facility] Last Admin: 08/10/18 08:00 Dose: 2.5 mg Piperacillin Sod/Tazobactam Sod (Zosyn 3.375 Gm Iv Premix) 3.375 gm in 50 mls @ 100 mls/hr IVPB Q8H [facility]; Protocol Last Admin: 08/10/18 05:03 Dose: 100 mls/hr Vancomycin HCl 1,000 mg/ (Sodium Chloride) 250 mls @ 166.6 mls/hr IVPB Q12H [facility]; Protocol Last Admin: 08/10/18 05:53 Dose: 166.6 mls/hr Insulin Human Regular (Novolin R) 0 unit SC ACHS [facility]; Protocol Last Admin: 08/10/18 11:26 Dose: 1 units Lactic Acid (Lac-Hydrin 12% Lotion (225 G)) 1 gm EXT QID [facility] Last Admin: 08/10/18 10:15 Dose: 1 applic Levothyroxine Sodium (Synthroid) 100 mcg PO DAILY@0630 [facility] Last Admin: 08/10/18 05:58 Dose: 100 mcg - Labs Labs: 08/09/18 07:47 08/09/18 07:47
--- NOTE | 2018-08-10 18:44 | CP.PCM.PN ---
Subjective - Date & Time of Evaluation Date of Evaluation: 08/10/18 Time of Evaluation: 08:00 - Subjective Subjective: improving on IV rx wound care helping Objective - Vital Signs/Intake and Output Vital Signs (last 24 hours): Temp Pulse Resp BP Pulse Ox 97.9 F 84 20 143/88 97 08/10/18 15:12 08/10/18 15:12 08/10/18 15:12 08/10/18 15:12 08/10/18 15:12 Intake and Output: 08/10/18 08/10/18 06:59 18:59 Intake Total 340 Balance 340 - Medications Medications: Current Medications Allopurinol (Zyloprim) 100 mg PO DAILY [facility] Last Admin: 08/10/18 11:24 Dose: 100 mg Amlodipine Besylate (Norvasc) 10 mg PO DAILY [facility] Last Admin: 08/10/18 11:25 Dose: 10 mg Furosemide (Lasix) 20 mg PO DAILY [facility] Last Admin: 08/10/18 11:25 Dose: 20 mg Glipizide (Glucotrol) 2.5 mg PO ACB [facility] Last Admin: 08/10/18 08:00 Dose: 2.5 mg Piperacillin Sod/Tazobactam Sod (Zosyn 3.375 Gm Iv Premix) 3.375 gm in 50 mls @ 100 mls/hr IVPB Q8H [facility]; Protocol Last Admin: 08/10/18 13:40 Dose: 100 mls/hr Vancomycin HCl 1,000 mg/ (Sodium Chloride) 250 mls @ 166.6 mls/hr IVPB Q12H [facility]; Protocol Last Admin: 08/10/18 18:15 Dose: 166.6 mls/hr Insulin Human Regular (Novolin R) 0 unit SC ACHS [facility]; Protocol Last Admin: 08/10/18 11:26 Dose: 1 units Lactic Acid (Lac-Hydrin 12% Lotion (225 G)) 1 gm EXT QID [facility] Last Admin: 08/10/18 18:16 Dose: 1 applic Levothyroxine Sodium (Synthroid) 100 mcg PO DAILY@0630 [facility] Last Admin: 08/10/18 05:58 Dose: 100 mcg - Labs Labs: 08/09/18 07:47 08/09/18 07:47 - Constitutional Appears: Non-toxic, Chronically Ill - Head Exam Head Exam: NORMOCEPHALIC - Eye Exam Eye Exam: absent: Scleral icterus - ENT Exam ENT Exam: Mucous Membranes Dry - Neck Exam Neck Exam: absent: Lymphadenopathy - Respiratory Exam Respiratory Exam: Decreased Breath Sounds - Cardiovascular Exam Cardiovascular Exam: REGULAR RHYTHM - GI/Abdominal Exam GI & Abdominal Exam: Distended, Soft - Rectal Exam Rectal Exam: Deferred - Exam Exam: NORMAL INSPECTION - Extremities Exam Extremities Exam: Pedal Edema, Tenderness. absent: Calf Tenderness, Normal Capillary Refill Assessment and Plan (1) Cellulitis of both lower extremities Status: Acute - Assessment and Plan (Free Text) Assessment: cont iv rx and wound care
--- NOTE | 2018-08-10 19:29 | PN ---
DATE: 08/10/2018 SUBJECTIVE: The patient was seen and examined at bedside. The patient is feeling much better, denies any new complaints. Leg pains are improving. PHYSICAL EXAMINATION: GENERAL: On examination, an elderly female, sitting in chair, in no acute distress. VITAL SIGNS: Blood pressure 151/74, pulse 69, respirations 20, temperature 97.7 degrees Fahrenheit, and O2 saturations 97% on room air. HEENT: Pupils equal, round, and reacting to light and accommodation. Extraocular muscles are intact. No icterus, no pallor, no oral thrush, no pharyngeal congestion. NECK: Supple, no JVD. LUNGS: Bilateral vesicular breath sounds. No wheezing, no rhonchi. CVS: S1 and S2 present, regular. ABDOMEN: Soft, nontender. Bowel sounds present. No guarding, no rigidity, no rebound tenderness noted. CENTRAL NERVOUS SYSTEM: Alert, awake, and oriented x 3. No focal deficits noted. EXTREMITIES: Bilateral lower extremity erythema present, multiple healing scabs present. Erythema is improving, tenderness present. MEDICATIONS: Include allopurinol 100 mg daily, Norvasc 10 mg daily, Lasix 20 mg daily, Glucotrol 2.5 mg daily, Lac-Hydrin 1 g four times a day, Synthroid 100 mcg daily, Zosyn 3.375 g IV every 8 hours, and vancomycin 1 g IV every 12 hours. LABORATORY DATA: Accu-Cheks 161, 165, 151, 155, and 196. ASSESSMENT AND PLAN: An elderly female with history of hypertension and hypothyroidism, got admitted for bilateral lower extremity cellulitis and newly diagnosed diabetes mellitus. The patient's symptoms are improving on Zosyn and vancomycin. Continue with current antibiotics. The patient had earlier. Her blood pressure is fairly better. We will monitor the blood pressures. Continue with Norvasc and Lasix. Social service is to make arrangements for possible subacute rehab placement when bed available. The patient is otherwise hemodynamically stable for transfer when bed available. Harris Mitchell MD
[2018-08-11] MEDS: Piperacill/Tazo 3.375gm in Dex 3.375 GM/50 ML BAG IVPB SCH ×3 (05:02→22:52)
[2018-08-11] MEDS: Levothyroxine 100 MCG TAB PO SCH (06:02)
[2018-08-11] MEDS: (Novolin R) Insulin Human Regular 100 units/ml vial SC SCH ×4 (07:32→22:52)
[2018-08-11] MEDS: GlipiZIDE 2.5 mg Tab PO SCH (08:30)
[2018-08-11] MEDS: Ammonium Lactate 12% Lotion (225 g) EXT SCH ×4 (10:19→22:52)
--- NOTE | 2018-08-11 16:37 | CP.PCM.PN ---
Subjective - Date & Time of Evaluation Date of Evaluation: 08/11/18 Time of Evaluation: 16:37 - Subjective Subjective: Progress note dictated # [id number] Objective - Vital Signs/Intake and Output Vital Signs (last 24 hours): Temp Pulse Resp BP Pulse Ox 97.8 F 76 20 142/78 97 08/11/18 15:00 08/11/18 15:00 08/11/18 15:00 08/11/18 15:00 08/11/18 15:00 Intake and Output: 08/11/18 08/11/18 06:59 18:59 Intake Total 350 400 Balance 350 400 - Medications Medications: Current Medications Allopurinol (Zyloprim) 100 mg PO DAILY [facility] Last Admin: 08/11/18 10:18 Dose: 100 mg Amlodipine Besylate (Norvasc) 10 mg PO DAILY [facility] Last Admin: 08/11/18 10:18 Dose: 10 mg Furosemide (Lasix) 20 mg PO DAILY [facility] Last Admin: 08/11/18 10:16 Dose: 20 mg Glipizide (Glucotrol) 2.5 mg PO ACB [facility] Last Admin: 08/11/18 08:30 Dose: 2.5 mg Piperacillin Sod/Tazobactam Sod (Zosyn 3.375 Gm Iv Premix) 3.375 gm in 50 mls @ 100 mls/hr IVPB Q8H [facility]; Protocol Last Admin: 08/11/18 14:09 Dose: 100 mls/hr Vancomycin HCl 1,000 mg/ (Sodium Chloride) 250 mls @ 166.6 mls/hr IVPB Q12H [facility]; Protocol Last Admin: 08/11/18 05:01 Dose: 166.6 mls/hr Insulin Human Regular (Novolin R) 0 unit SC ACHS [facility]; Protocol Last Admin: 08/11/18 11:54 Dose: 1 units Lactic Acid (Lac-Hydrin 12% Lotion (225 G)) 1 gm EXT QID [facility] Last Admin: 08/11/18 14:10 Dose: 1 applic Levothyroxine Sodium (Synthroid) 100 mcg PO DAILY@0630 [facility] Last Admin: 08/11/18 06:02 Dose: 100 mcg - Labs Labs: 08/09/18 07:47 08/09/18 07:47
--- NOTE | 2018-08-11 19:14 | CP.PCM.PN ---
Subjective - Date & Time of Evaluation Date of Evaluation: 08/11/18 Time of Evaluation: 08:00 - Subjective Subjective: events noted will check vanco level cont wound care Objective - Vital Signs/Intake and Output Vital Signs (last 24 hours): Temp Pulse Resp BP Pulse Ox 97.8 F 76 20 142/78 97 08/11/18 15:00 08/11/18 15:00 08/11/18 15:00 08/11/18 15:00 08/11/18 15:00 Intake and Output: 08/11/18 08/12/18 18:59 06:59 Intake Total 400 Balance 400 - Medications Medications: Current Medications Allopurinol (Zyloprim) 100 mg PO DAILY [facility] Last Admin: 08/11/18 10:18 Dose: 100 mg Amlodipine Besylate (Norvasc) 10 mg PO DAILY [facility] Last Admin: 08/11/18 10:18 Dose: 10 mg Furosemide (Lasix) 20 mg PO DAILY [facility] Last Admin: 08/11/18 10:16 Dose: 20 mg Glipizide (Glucotrol) 2.5 mg PO ACB [facility] Last Admin: 08/11/18 08:30 Dose: 2.5 mg Piperacillin Sod/Tazobactam Sod (Zosyn 3.375 Gm Iv Premix) 3.375 gm in 50 mls @ 100 mls/hr IVPB Q8H [facility]; Protocol Last Admin: 08/11/18 14:09 Dose: 100 mls/hr Vancomycin HCl 1,000 mg/ (Sodium Chloride) 250 mls @ 166.6 mls/hr IVPB Q12H [facility]; Protocol Last Admin: 08/11/18 17:35 Dose: 166.6 mls/hr Insulin Human Regular (Novolin R) 0 unit SC ACHS [facility]; Protocol Last Admin: 08/11/18 17:30 Dose: Not Given Lactic Acid (Lac-Hydrin 12% Lotion (225 G)) 1 gm EXT QID [facility] Last Admin: 08/11/18 17:35 Dose: 1 applic Levothyroxine Sodium (Synthroid) 100 mcg PO DAILY@0630 [facility] Last Admin: 08/11/18 06:02 Dose: 100 mcg - Labs Labs: 08/09/18 07:47 08/09/18 07:47 - Constitutional Appears: Non-toxic, Chronically Ill - Head Exam Head Exam: NORMOCEPHALIC - Eye Exam Eye Exam: absent: Scleral icterus - ENT Exam ENT Exam: Mucous Membranes Dry - Neck Exam Neck Exam: absent: Lymphadenopathy - Respiratory Exam Respiratory Exam: Decreased Breath Sounds - Cardiovascular Exam Cardiovascular Exam: REGULAR RHYTHM - GI/Abdominal Exam GI & Abdominal Exam: Diminished Bowel Sounds Assessment and Plan (1) Cellulitis of both lower extremities Status: Acute
--- NOTE | 2018-08-12 02:51 | PN ---
DATE: 08/11/2018 SUBJECTIVE: The patient was seen and examined at bedside. The patient denies any new complaints. Her leg pains are improving. PHYSICAL EXAMINATION: GENERAL: Elderly female, lying in bed, in no acute distress. VITAL SIGNS: Blood pressure 142/78, pulse 76, respirations 20, temperature 97.8 degree Fahrenheit, O2 sat is 97% on room air. HEENT: Pupils are equal, round, and reacting to light and accommodation. Extraocular muscles intact. No icterus. No pallor. No oral thrush. No pharyngeal congestion. NECK: Supple. No JVD. LUNGS: Bilateral vesicular breath sounds. No wheezing. No rhonchi. CARDIOVASCULAR SYSTEM: S1 and S2 present, regular. ABDOMEN: Soft and nontender. Bowel sounds present. No guarding. No rigidity. No rebound tenderness noted. CENTRAL NERVOUS SYSTEM: Alert, awake, oriented x3. No focal deficits noted. EXTREMITIES: Bilateral lower extremity erythema present, tenderness present but improving erythema. MEDICATIONS: Include allopurinol 100 mg daily, Norvasc 10 mg daily, Lasix 20 mg daily, glipizide 2.5 mg daily, Lac-Hydrin cream, Synthroid 100 mcg daily, vancomycin 1 g every 12 hours. LABORATORY DATA: Accu-Cheks 139, 150, 175, 92, 374. Wound culture consistent with Staphylococcus aureus, blood cultures negative. ASSESSMENT AND PLAN: Elderly female with history of hypertension, hypothyroidism, and gout, admitted for bilateral lower extremity cellulitis, wound culture consistent with Staphylococcus aureus, blood cultures negative, newly diagnosed diabetes mellitus. Vascular studies negative for any coronary artery disease. Continue with amlodipine and Lasix. Blood pressure is fairly okay. Continue with the glipizide. We will increase glipizide if sugars are uncontrolled. Continue with Zosyn and vancomycin. Awaiting possible subacute rehab placement for completion of the intravenous antibiotics. We will follow up with long term care social worker for discharge planning. Harris Mitchell MD
[2018-08-12] MEDS: Piperacill/Tazo 3.375gm in Dex 3.375 GM/50 ML BAG IVPB SCH ×2 (06:04→14:12)
[2018-08-12] MEDS: Levothyroxine 100 MCG TAB PO SCH (06:04)
[2018-08-12 07:41] LABS: BASO % 0.6 % (0.0-2.0); EOS # 0.2 K/uL (0.0-0.7); EOS % 2.7 % (0.0-4.0); LYMPH # 2.1 K/uL (1.0-4.3); LYMPH % 28.5 % (20.0-40.0); MEAN CELL VOLUME 85.4 fL (81.0-99.0); MEAN CORPUSCULAR HEMOGLOBIN 27.5 pg (27.0-31.0); MEAN CORPUSCULAR HGB CONC 32.2 g/dL (33.0-37.0); MEAN PLATELET VOLUME 6.8 fL (7.2-11.7); MONO # 0.5 K/uL (0.0-0.8); MONO % 7.1 % (0.0-10.0); NEUT # 4.4 K/uL (1.8-7.0); NEUT % 61.1 % (50.0-75.0); NRBC % 0.1 % (0.0-2.0); RBC 4.34 Mil/uL (3.80-5.20); RED CELL DISTRIBUTION WIDTH 14.9 % (11.5-14.5); WHITE BLOOD COUNT 7.3 K/uL (4.8-10.8)
[2018-08-12 08:10] LABS: ALB/GLOB RATIO 1.1 (1.0-2.1); ALBUMIN 3.9 g/dL (3.5-5.0); ALT/SGPT 42 U/L (9-52); AST/SGOT 37 U/L (14-36); BLOOD UREA NITROGEN 11 mg/dL (7-17); CALCIUM 9.2 mg/dl (8.6-10.4); GFR NON-AFRICAN AMERICAN 55
[2018-08-12] MEDS: GlipiZIDE 2.5 mg Tab PO SCH (08:38)
[2018-08-12] MEDS: Ammonium Lactate 12% Lotion (225 g) EXT SCH ×4 (10:15→22:30)
[2018-08-12] MEDS: (Novolin R) Insulin Human Regular 100 units/ml vial SC SCH ×4 (13:11→22:30)
[2018-08-12 15:48] VITALS: RESP 20
--- NOTE | 2018-08-12 15:49 | CP.PCM.PN ---
Subjective - Date & Time of Evaluation Date of Evaluation: 08/12/18 Time of Evaluation: 15:49 - Subjective Subjective: Progress note dictated # [id number] Objective - Vital Signs/Intake and Output Vital Signs (last 24 hours): Temp Pulse Resp BP Pulse Ox 97.7 F 78 20 127/72 95 08/12/18 15:00 08/12/18 15:00 08/12/18 15:00 08/12/18 15:00 08/12/18 15:00 Intake and Output: 08/12/18 08/12/18 06:59 18:59 Intake Total 700 Balance 700 - Medications Medications: Current Medications Allopurinol (Zyloprim) 100 mg PO DAILY [facility] Last Admin: 08/12/18 10:13 Dose: 100 mg Amlodipine Besylate (Norvasc) 10 mg PO DAILY [facility] Last Admin: 08/12/18 10:13 Dose: 10 mg Furosemide (Lasix) 20 mg PO DAILY [facility] Last Admin: 08/12/18 10:13 Dose: 20 mg Glipizide (Glucotrol) 2.5 mg PO ACB [facility] Last Admin: 08/12/18 08:38 Dose: 2.5 mg Vancomycin HCl 1,000 mg/ (Sodium Chloride) 250 mls @ 166.6 mls/hr IVPB Q12H [facility]; Protocol Last Admin: 08/12/18 06:52 Dose: 166.6 mls/hr Insulin Human Regular (Novolin R) 0 unit SC ACHS [facility]; Protocol Last Admin: 08/12/18 13:12 Dose: Not Given Lactic Acid (Lac-Hydrin 12% Lotion (225 G)) 1 gm EXT QID [facility] Last Admin: 08/12/18 14:12 Dose: 1 applic Levothyroxine Sodium (Synthroid) 100 mcg PO DAILY@0630 [facility] Last Admin: 08/12/18 06:04 Dose: 100 mcg - Labs Labs: 08/12/18 07:34 08/12/18 07:34
--- NOTE | 2018-08-12 18:17 | CP.PCM.PN ---
Subjective - Date & Time of Evaluation Date of Evaluation: 08/12/18 Time of Evaluation: 10:00 - Subjective Subjective: improving iv rx in progress Objective - Vital Signs/Intake and Output Vital Signs (last 24 hours): Temp Pulse Resp BP Pulse Ox 97.7 F 78 20 127/72 95 08/12/18 15:00 08/12/18 15:00 08/12/18 15:00 08/12/18 15:00 08/12/18 15:00 Intake and Output: 08/12/18 08/12/18 06:59 18:59 Intake Total 700 Balance 700 - Medications Medications: Current Medications Allopurinol (Zyloprim) 100 mg PO DAILY [facility] Last Admin: 08/12/18 10:13 Dose: 100 mg Amlodipine Besylate (Norvasc) 10 mg PO DAILY [facility] Last Admin: 08/12/18 10:13 Dose: 10 mg Furosemide (Lasix) 20 mg PO DAILY [facility] Last Admin: 08/12/18 10:13 Dose: 20 mg Glipizide (Glucotrol) 2.5 mg PO ACB [facility] Last Admin: 08/12/18 08:38 Dose: 2.5 mg Vancomycin HCl 1,000 mg/ (Sodium Chloride) 250 mls @ 166.6 mls/hr IVPB Q12H [facility]; Protocol Last Admin: 08/12/18 06:52 Dose: 166.6 mls/hr Insulin Human Regular (Novolin R) 0 unit SC ACHS [facility]; Protocol Last Admin: 08/12/18 13:12 Dose: Not Given Lactic Acid (Lac-Hydrin 12% Lotion (225 G)) 1 gm EXT QID [facility] Last Admin: 08/12/18 14:12 Dose: 1 applic Levothyroxine Sodium (Synthroid) 100 mcg PO DAILY@0630 [facility] Last Admin: 08/12/18 06:04 Dose: 100 mcg - Labs Labs: 08/12/18 07:34 08/12/18 07:34 - Constitutional Appears: Non-toxic, Chronically Ill - Head Exam Head Exam: NORMOCEPHALIC - Eye Exam Eye Exam: absent: Scleral icterus - ENT Exam ENT Exam: Mucous Membranes Dry - Neck Exam Neck Exam: absent: Lymphadenopathy - Respiratory Exam Respiratory Exam: Decreased Breath Sounds - Cardiovascular Exam Cardiovascular Exam: REGULAR RHYTHM - GI/Abdominal Exam GI & Abdominal Exam: Distended, Soft - Rectal Exam Rectal Exam: Deferred - Exam Exam: NORMAL INSPECTION - Extremities Exam Extremities Exam: absent: Pedal Edema - Back Exam Back Exam: absent: CVA tenderness (L), CVA tenderness (R) - Neurological Exam Neurological Exam: Alert, Awake, Oriented x3 Neuro motor strength exam: Left Upper Extremity: 5, Right Upper Extremity: 5, Left Lower Extremity: 5, Right Lower Extremity: 5 - Psychiatric Exam Psychiatric exam: Normal Mood - Skin Skin Exam: Dry Assessment and Plan (1) Cellulitis of both lower extremities Status: Acute - Assessment and Plan (Free Text) Assessment: cont iv rx as ordered
--- NOTE | 2018-08-13 01:05 | PN ---
DATE: 08/12/2018 SUBJECTIVE: The patient was seen and examined at bedside. The patient offers no new complaints. Her leg pain is improving. PHYSICAL EXAMINATION: GENERAL: Elderly female, lying in bed, in no acute distress. VITAL SIGNS: Blood pressure 127/72, pulse 78, respirations 20, temperature 97.7 degrees Fahrenheit, O2 sat is 95% on room air. HEENT: Pupils equal, round, and reacting to light and accommodation. Extraocular muscles intact. No icterus. No pallor. No oral thrush. No pharyngeal congestion. NECK: Supple. No JVD. LUNGS: Bilateral vesicular breath sounds. No wheezing, no rhonchi. CARDIOVASCULAR SYSTEM: S1 and S2 present, regular. ABDOMEN: Soft. Nontender. Bowel sounds present. No guarding. No rigidity. No rebound tenderness noted. CENTRAL NERVOUS SYSTEM: Alert, awake, oriented x3. No focal deficits noted. EXTREMITIES: Bilateral lower extremity erythema improving. Swelling improving. Scabs are healing. MEDICATIONS: Include allopurinol 100 mg daily, amlodipine 10 mg daily, Lasix 20 mg daily, Glucotrol 2.5 mg daily, Lac-Hydrin cream, Synthroid 100 mEq p.o. daily, Zosyn 3.375 g IV every 6 hours, vancomycin 1 g IV every 12 hours. LABS FROM THIS MORNING: WBC 7.3, hemoglobin 12, hematocrit 37.1, platelets 420. Sodium 138, potassium 4.7, chloride 101, bicarb 29, BUN 11, creatinine 1, glucose 139, calcium 9.2, phosphorus 4.2, magnesium 2, AST 37, ALT 42, alkaline phosphatase 98, total protein 7.5, albumin 3.9. ASSESSMENT AND PLAN: Elderly female with history of hypertension, hypothyroidism, gout, admitted for bilateral leg cellulitis, wound culture growing Staph aureus, newly diagnosed diabetes mellitus, improving symptoms on Zosyn and vancomycin. Blood pressure is stable on Norvasc and Lasix. We will continue with current antibiotics and current antihypertensives. Accu-Cheks are fair. We will repeat labs in a.m., awaiting for subacute rehab placement. Continue with deep venous thrombosis and gastrointestinal prophylaxis. Harris Mitchell MD
[2018-08-13] MEDS: Levothyroxine 100 MCG TAB PO SCH (06:32)
[2018-08-13] MEDS: GlipiZIDE 2.5 mg Tab PO SCH (08:40)
[2018-08-13] MEDS: (Novolin R) Insulin Human Regular 100 units/ml vial SC SCH ×4 (08:40→23:12)
[2018-08-13] MEDS: Ammonium Lactate 12% Lotion (225 g) EXT SCH ×4 (09:32→22:00)
--- NOTE | 2018-08-13 13:27 | CP.PCM.PN ---
Subjective - Date & Time of Evaluation Date of Evaluation: 08/13/18 Time of Evaluation: 13:15 - Subjective Subjective: Progress note dictated #[id number] Objective - Vital Signs/Intake and Output Vital Signs (last 24 hours): Temp Pulse Resp BP Pulse Ox 97.6 F 78 20 146/76 20 L 08/13/18 07:00 08/13/18 07:00 08/13/18 07:00 08/13/18 09:28 08/13/18 07:00 - Medications Medications: Current Medications Allopurinol (Zyloprim) 100 mg PO DAILY [facility] Last Admin: 08/13/18 09:28 Dose: 100 mg Amlodipine Besylate (Norvasc) 10 mg PO DAILY [facility] Last Admin: 08/13/18 09:28 Dose: 10 mg Furosemide (Lasix) 20 mg PO DAILY [facility] Last Admin: 08/13/18 09:28 Dose: 20 mg Glipizide (Glucotrol) 2.5 mg PO ACB [facility] Last Admin: 08/13/18 08:40 Dose: 2.5 mg Insulin Human Regular (Novolin R) 0 unit SC [facility]; Protocol Last Admin: 08/13/18 12:28 Dose: Not Given Lactic Acid (Lac-Hydrin 12% Lotion (225 G)) 1 gm EXT QID [facility] Last Admin: 08/13/18 09:32 Dose: 1 applic Levothyroxine Sodium (Synthroid) 100 mcg PO DAILY@0630 [facility] Last Admin: 08/13/18 06:32 Dose: 100 mcg - Labs Labs: 08/12/18 07:34 08/12/18 07:34
[2018-08-13] MEDS: Piperacill/Tazo 3.375gm in Dex 3.375 GM/50 ML BAG IVPB SCH ×2 (14:29→23:13)
[2018-08-13] MEDS: Vancomycin 1 gm/NS 200 ml 1 GM/200 ML BAG IVPB SCH (18:12)
--- NOTE | 2018-08-13 18:26 | PN ---
DATE: 08/13/2018 SUBJECTIVE: The patient was seen and examined at bedside. The patient offers no new complaints. PHYSICAL EXAMINATION GENERAL: Elderly female, lying in bed, in no acute distress. VITAL SIGNS: Blood pressure 143/78, pulse 78, respirations 20, temperature 97.6 degrees Fahrenheit, O2 sat is 96% on room air. HEENT: Pupils equal, round and reacting to light and accommodation. Extraocular muscles intact. No icterus. No pallor. No oral thrush. No pharyngeal congestion. NECK: Supple. No JVD. No thyromegaly. CHEST: Moving equally bilaterally on respiration. LUNGS: Bilateral vesicular breath sounds. No wheezing, no rhonchi. CARDIOVASCULAR SYSTEM: S1 and S2 present, regular. ABDOMEN: Soft. Nontender. Bowel sounds present. No guarding. No rigidity. No rebound tenderness noted. CENTRAL NERVOUS SYSTEM: Alert, awake, oriented x3. No focal deficits noted. EXTREMITIES: Bilateral lower extremity erythema present, swelling decreasing, tenderness decreasing. MEDICATIONS: Include allopurinol 100 mg daily, Norvasc 10 mg daily, Lasix 20 mg daily, Glucotrol 2.5 mg daily, Lac-Hydrin cream, Synthroid 100 mcg daily, Zosyn 3.375 g IV every 8 hours, vancomycin 1 g IV every 12 hours. LABORATORY DATA: Accu-Cheks: 194,192,172, 162 and 106. ASSESSMENT AND PLAN: Elderly female with hypertension, hypothyroidism and gout, admitted for newly diagnosed diabetes mellitus and bilateral lower extremity cellulitis. On intravenous antibiotics. Blood pressure is stable. Accu-Cheks are fair. The patient is awaiting for subacute rehab placement for completion of the intravenous antibiotics. We will continue with current antibiotics, follow up with [employer] for discharge planning. Harris Mitchell MD
[2018-08-14] MEDS: Piperacill/Tazo 3.375gm in Dex 3.375 GM/50 ML BAG IVPB SCH ×3 (02:16→13:40)
[2018-08-14] MEDS: Vancomycin 1 gm/NS 200 ml 1 GM/200 ML BAG IVPB SCH (05:09)
[2018-08-14] MEDS: Levothyroxine 100 MCG TAB PO SCH (06:21)
[2018-08-14] MEDS: (Novolin R) Insulin Human Regular 100 units/ml vial SC SCH ×4 (08:04→22:09)
[2018-08-14] MEDS: GlipiZIDE 2.5 mg Tab PO SCH (08:10)
[2018-08-14] MEDS: Ammonium Lactate 12% Lotion (225 g) EXT SCH ×4 (10:32→22:10)
--- NOTE | 2018-08-14 14:44 | CP.PCM.PN ---
Subjective - Date & Time of Evaluation Date of Evaluation: 08/14/18 Time of Evaluation: 09:00 - Subjective Subjective: afeb this am nad Objective - Vital Signs/Intake and Output Vital Signs (last 24 hours): Temp Pulse Resp BP Pulse Ox 98.0 F 76 20 120/66 95 08/14/18 07:00 08/14/18 07:00 08/14/18 07:00 08/14/18 10:32 08/14/18 07:00 Intake and Output: 08/14/18 08/14/18 06:59 18:59 Intake Total 650 370 Balance 650 370 - Medications Medications: Current Medications Allopurinol (Zyloprim) 100 mg PO DAILY [facility] Last Admin: 08/14/18 10:32 Dose: 100 mg Amlodipine Besylate (Norvasc) 10 mg PO DAILY [facility] Last Admin: 08/14/18 10:32 Dose: 10 mg Furosemide (Lasix) 20 mg PO DAILY [facility] Last Admin: 08/14/18 10:32 Dose: 20 mg Glipizide (Glucotrol) 2.5 mg PO ACB [facility] Last Admin: 08/14/18 08:10 Dose: 2.5 mg Piperacillin Sod/Tazobactam Sod (Zosyn 3.375 Gm Iv Premix) 3.375 gm in 50 mls @ 100 mls/hr IVPB Q6H [facility]; Protocol Last Admin: 08/14/18 13:40 Dose: 100 mls/hr Vancomycin/Sodium Chloride (Vancomycin 1 Gm/Ns 200 Ml) 1 gm in 200 mls @ 133.333 mls/hr IVPB Q12H [facility]; Protocol Stop: 08/18/18 18:01 Last Admin: 08/14/18 05:09 Dose: 133.333 mls/hr Insulin Human Regular (Novolin R) 0 unit SC ACHS [facility]; Protocol Last Admin: 08/14/18 12:27 Dose: 1 units Lactic Acid (Lac-Hydrin 12% Lotion (225 G)) 1 gm EXT QID [facility] Last Admin: 08/14/18 13:40 Dose: 1 applic Levothyroxine Sodium (Synthroid) 100 mcg PO DAILY@0630 [facility] Last Admin: 08/14/18 06:21 Dose: 100 mcg - Labs Labs: 08/12/18 07:34 08/12/18 07:34 - Constitutional Appears: Non-toxic - Head Exam Head Exam: NORMOCEPHALIC - Eye Exam Eye Exam: absent: Scleral icterus - ENT Exam ENT Exam: Mucous Membranes Dry - Neck Exam Neck Exam: absent: Lymphadenopathy - Respiratory Exam Respiratory Exam: Decreased Breath Sounds - Cardiovascular Exam Cardiovascular Exam: REGULAR RHYTHM - GI/Abdominal Exam GI & Abdominal Exam: Distended, Soft - Rectal Exam Rectal Exam: Deferred - Exam Exam: NORMAL INSPECTION Assessment and Plan (1) Cellulitis of both lower extremities Status: Acute - Assessment and Plan (Free Text) Assessment: cont rx
--- NOTE | 2018-08-14 17:25 | CP.PCM.PN ---
Subjective - Date & Time of Evaluation Date of Evaluation: 08/14/18 Time of Evaluation: 17:25 - Subjective Subjective: Progress note dictated #[id number] Objective - Vital Signs/Intake and Output Vital Signs (last 24 hours): Temp Pulse Resp BP Pulse Ox 98.0 F 76 20 120/66 95 08/14/18 07:00 08/14/18 07:00 08/14/18 07:00 08/14/18 10:32 08/14/18 07:00 Intake and Output: 08/14/18 08/14/18 06:59 18:59 Intake Total 650 370 Balance 650 370 - Medications Medications: Current Medications Allopurinol (Zyloprim) 100 mg PO DAILY [facility] Last Admin: 08/14/18 10:32 Dose: 100 mg Amlodipine Besylate (Norvasc) 10 mg PO DAILY [facility] Last Admin: 08/14/18 10:32 Dose: 10 mg Furosemide (Lasix) 20 mg PO DAILY [facility] Last Admin: 08/14/18 10:32 Dose: 20 mg Glipizide (Glucotrol) 2.5 mg PO ACB [facility] Last Admin: 08/14/18 08:10 Dose: 2.5 mg Cefazolin Sodium 1,000 mg/ (Sodium Chloride) 100 mls @ 100 mls/hr IVPB Q8H [facility]; Protocol Insulin Human Regular (Novolin R) 0 unit SC ACHS [facility]; Protocol Last Admin: 08/14/18 16:59 Dose: Not Given Lactic Acid (Lac-Hydrin 12% Lotion (225 G)) 1 gm EXT QID [facility] Last Admin: 08/14/18 13:40 Dose: 1 applic Levothyroxine Sodium (Synthroid) 100 mcg PO DAILY@0630 [facility] Last Admin: 08/14/18 06:21 Dose: 100 mcg Oxycodone/Acetaminophen (Percocet 5/325 Mg Tab) 1 tab PO Q6H PRN PRN Reason: Pain, moderate (4-7) Stop: 08/17/18 17:24 - Labs Labs: 08/12/18 07:34 08/12/18 07:34
[2018-08-14] MEDS ORDERED: Oxycodone/Acetaminophen 5/325 mg Tab PO PRN (17:33)
--- NOTE | 2018-08-14 23:03 | PN ---
DATE: 08/14/2018 SUBJECTIVE: The patient was seen and examined at bedside. The patient is feeling better. Denies any new complaints. Her legs are feeling better. All other systems reviewed and were found to be negative. PHYSICAL EXAMINATION: GENERAL: Elderly female, lying in bed, in no acute distress. VITAL SIGNS: Blood pressure 120/66, pulse 76, respirations 20, temperature 98 degrees Fahrenheit, O2 sat is 95% on nasal canula. HEENT: Pupils equal, round, and reacting to light and accommodation. Extraocular muscles intact. No icterus. No pallor. No oral thrush. No pharyngeal congestion. NECK: Supple. No JVD. LUNGS: Bilateral vesicular breath sounds. No wheezing, no rhonchi. CARDIOVASCULAR SYSTEM: S1 and S2 present, regular. ABDOMEN: Soft. Nontender. Bowel sounds present. No guarding. No rigidity. No rebound tenderness noted. CENTRAL NERVOUS SYSTEM: Alert, awake, oriented x3. No focal deficits noted. EXTREMITIES: Both lower extremities erythema improving, swelling improving. MEDICATIONS: Include allopurinol 100 mg daily, Norvasc 10 mg daily, Ancef 1 g IV every 8 hours, Lasix 20 mg daily, Glucotrol 2.5 mg daily, Lac-Hydrin cream, Synthroid 100 mcg daily, Percocet as needed for pain. LABORATORY DATA: Accu-Cheks are 94, 135, 134, 157, and 138. ASSESSMENT AND PLAN: Elderly female with history of hypertension, hypothyroidism, and gout, admitted for bilateral lower extremity cellulitis and newly diagnosed diabetes mellitus. Her cellulitis is improving on intravenous antibiotics, add Zosyn and vancomycin, switch to Ancef by Dr. Burch. Blood pressure is stable on current medication. Continue with deep vein thrombosis and gastrointestinal prophylaxis. Follow up with social science teacher for discharge planning. Harris Mitchell MD
[2018-08-15] MEDS: Levothyroxine 100 MCG TAB PO SCH (06:44)
[2018-08-15] MEDS: GlipiZIDE 2.5 mg Tab PO SCH (06:44)
[2018-08-15] MEDS: (Novolin R) Insulin Human Regular 100 units/ml vial SC SCH ×3 (07:38→16:56)
[2018-08-15] MEDS: Ammonium Lactate 12% Lotion (225 g) EXT SCH ×2 (10:22→13:38)
--- NOTE | 2018-08-15 14:37 | CP.PCM.PN ---
Subjective - Date & Time of Evaluation Date of Evaluation: 08/15/18 Time of Evaluation: 14:37 - Subjective Subjective: PATIENT SEEN AND EXAMINED AT THE BEDSIDE Objective - Vital Signs/Intake and Output Vital Signs (last 24 hours): Temp Pulse Resp BP Pulse Ox 97.9 F 59 L 20 116/65 97 08/15/18 07:00 08/15/18 07:00 08/15/18 07:00 08/15/18 10:21 08/15/18 07:00 Intake and Output: 08/15/18 08/15/18 06:59 18:59 Intake Total 550 400 Balance 550 400 - Medications Medications: Current Medications Allopurinol (Zyloprim) 100 mg PO DAILY [facility] Last Admin: 08/15/18 10:22 Dose: 100 mg Amlodipine Besylate (Norvasc) 10 mg PO DAILY [facility] Last Admin: 08/15/18 10:22 Dose: 10 mg Furosemide (Lasix) 20 mg PO DAILY [facility] Last Admin: 08/15/18 10:21 Dose: 20 mg Glipizide (Glucotrol) 2.5 mg PO ACB [facility] Last Admin: 08/15/18 06:44 Dose: 2.5 mg Cefazolin Sodium 1,000 mg/ (Sodium Chloride) 100 mls @ 100 mls/hr IVPB Q8H [facility]; Protocol Last Admin: 08/15/18 06:44 Dose: 100 mls/hr Insulin Human Regular (Novolin R) 0 unit SC ACHS [facility]; Protocol Last Admin: 08/15/18 12:09 Dose: 2 units Lactic Acid (Lac-Hydrin 12% Lotion (225 G)) 1 gm EXT QID [facility] Last Admin: 08/15/18 13:38 Dose: 1 applic Levothyroxine Sodium (Synthroid) 100 mcg PO DAILY@0630 [facility] Last Admin: 08/15/18 06:44 Dose: 100 mcg - Labs Labs: 08/12/18 07:34 08/12/18 07:34 Assessment and Plan - Assessment and Plan (Free Text) Assessment: PLACE UNDER THE SERVICE OF DR ANAYA AT [facility] -----CALL FOR ADMITTING ORDER CONTINUE HOME MEDICATION NEW PRESCRIPTION GIVEN ANCEF IVPB Q8H FOR 7 DAYS SYNTHROID INCREASE TO 100 MCG ACTIVITY TOLERATED IV LINE CARE PER FACILITY PROTOCOL CALL DR ANAYA FOR FURTHER ORDER
--- NOTE | 2018-08-15 14:51 | CP.PCM.PN ---
Subjective - Date & Time of Evaluation Date of Evaluation: 08/15/18 Time of Evaluation: 07:00 - Subjective Subjective: improving on IV rx wound care in progress Objective - Vital Signs/Intake and Output Vital Signs (last 24 hours): Temp Pulse Resp BP Pulse Ox 97.9 F 59 L 20 116/65 97 08/15/18 07:00 08/15/18 07:00 08/15/18 07:00 08/15/18 10:21 08/15/18 07:00 Intake and Output: 08/15/18 08/15/18 06:59 18:59 Intake Total 550 400 Balance 550 400 - Medications Medications: Current Medications Allopurinol (Zyloprim) 100 mg PO DAILY [facility] Last Admin: 08/15/18 10:22 Dose: 100 mg Amlodipine Besylate (Norvasc) 10 mg PO DAILY [facility] Last Admin: 08/15/18 10:22 Dose: 10 mg Furosemide (Lasix) 20 mg PO DAILY [facility] Last Admin: 08/15/18 10:21 Dose: 20 mg Glipizide (Glucotrol) 2.5 mg PO ACB [facility] Last Admin: 08/15/18 06:44 Dose: 2.5 mg Cefazolin Sodium 1,000 mg/ (Sodium Chloride) 100 mls @ 100 mls/hr IVPB Q8H [facility]; Protocol Last Admin: 08/15/18 06:44 Dose: 100 mls/hr Insulin Human Regular (Novolin R) 0 unit SC ACHS [facility]; Protocol Last Admin: 08/15/18 12:09 Dose: 2 units Lactic Acid (Lac-Hydrin 12% Lotion (225 G)) 1 gm EXT QID [facility] Last Admin: 08/15/18 13:38 Dose: 1 applic Levothyroxine Sodium (Synthroid) 100 mcg PO DAILY@0630 [facility] Last Admin: 08/15/18 06:44 Dose: 100 mcg - Labs Labs: 08/12/18 07:34 08/12/18 07:34 - Constitutional Appears: Non-toxic, Chronically Ill - Head Exam Head Exam: NORMOCEPHALIC - Eye Exam Eye Exam: absent: Scleral icterus - ENT Exam ENT Exam: Mucous Membranes Dry - Neck Exam Neck Exam: absent: Lymphadenopathy - Respiratory Exam Respiratory Exam: Decreased Breath Sounds - Cardiovascular Exam Cardiovascular Exam: REGULAR RHYTHM - GI/Abdominal Exam GI & Abdominal Exam: Distended, Soft - Rectal Exam Rectal Exam: Deferred - Exam Exam: NORMAL INSPECTION - Extremities Exam Extremities Exam: absent: Pedal Edema - Back Exam Back Exam: absent: CVA tenderness (L), CVA tenderness (R) Assessment and Plan (1) Cellulitis of both lower extremities Status: Acute - Assessment and Plan (Free Text) Assessment: cont iv rx min 7 more days
--- NOTE | 2018-08-15 15:27 | CP.PCM.PN ---
Subjective - Date & Time of Evaluation Date of Evaluation: 08/15/18 Time of Evaluation: 15:10 - Subjective Subjective: Discharge summary dictated #[id number] Objective - Vital Signs/Intake and Output Vital Signs (last 24 hours): Temp Pulse Resp BP Pulse Ox 97.9 F 59 L 20 116/65 97 08/15/18 07:00 08/15/18 07:00 08/15/18 07:00 08/15/18 10:21 08/15/18 07:00 Intake and Output: 08/15/18 08/15/18 06:59 18:59 Intake Total 550 400 Balance 550 400 - Medications Medications: Current Medications Allopurinol (Zyloprim) 100 mg PO DAILY [facility] Last Admin: 08/15/18 10:22 Dose: 100 mg Amlodipine Besylate (Norvasc) 10 mg PO DAILY [facility] Last Admin: 08/15/18 10:22 Dose: 10 mg Furosemide (Lasix) 20 mg PO DAILY [facility] Last Admin: 08/15/18 10:21 Dose: 20 mg Glipizide (Glucotrol) 2.5 mg PO ACB [facility] Last Admin: 08/15/18 06:44 Dose: 2.5 mg Cefazolin Sodium 1,000 mg/ (Sodium Chloride) 100 mls @ 100 mls/hr IVPB Q8H [facility]; Protocol Last Admin: 08/15/18 06:44 Dose: 100 mls/hr Insulin Human Regular (Novolin R) 0 unit SC ACHS [facility]; Protocol Last Admin: 08/15/18 12:09 Dose: 2 units Lactic Acid (Lac-Hydrin 12% Lotion (225 G)) 1 gm EXT QID [facility] Last Admin: 08/15/18 13:38 Dose: 1 applic Levothyroxine Sodium (Synthroid) 100 mcg PO DAILY@0630 [facility] Last Admin: 08/15/18 06:44 Dose: 100 mcg - Labs Labs: 08/12/18 07:34 08/12/18 07:34
[2018-08-15 17:37] VITALS: BP 157/79; PULSE 77; TEMP 97.6; O2SAT 95
--- NOTE | 2018-08-16 07:21 | DS ---
DISCHARGE DIAGNOSES: Bilateral lower extremity cellulitis, newly diagnosed diabetes mellitus, hypertension, hypothyroidism, gout. HISTORY OF PRESENT ILLNESS: Ms. Aldana is a 67-year-old female with past medical history of hypertension, hypothyroidism, gout, came into the ED with complaints of bilateral lower extremity redness, swelling, and pain, progressively getting worse over the past few weeks. In the ED, the patient was found to be having bilateral cellulitis and the patient has been admitted for further treatment. Today, the patient is feeling better. Denies any headache or dizziness. Denies any chest pain, shortness of breath, or wheezing. Denies any nausea, vomiting, abdominal pain, diarrhea, or constipation. Denies any urinary complaints. Bilateral lower extremity erythema is improving. Denies any neurologic symptoms. PHYSICAL EXAMINATION: GENERAL: Elderly female, lying in bed, in no acute distress. VITAL SIGNS: Blood pressure 145/77, pulse 59, respirations 20, temperature 98.4 degrees Fahrenheit, and O2 saturations 95% on room air. HEENT: Pupils equal, round, and reacting to light and accommodation. Extraocular muscles intact. No icterus. No pallor. No oral thrush. No pharyngeal congestion. NECK: Supple. No JVD. LUNGS: Bilateral vesicular breath sounds. No wheezing. No rhonchi. CVS: S1 and S2 present. Regular. ABDOMEN: Soft, and nontender. Bowel sounds present. No guarding. No rigidity. No rebound tenderness noted. [employer] DEVELOP[employer] CONSULTANT: Alert, awake, and oriented x3. No focal deficits noted. EXTREMITIES: Bilateral lower extremity redness and swelling improving. LABORATORY DATA: Accu-checks 157, 138, 172, 137, 230. WBC is 7.3, hemoglobin 12, hematocrit 37.1, and platelets 420. Sodium 138, potassium 4.7, chloride 101, bicarbonate 29. BUN 11, creatinine 1, glucose 146, hemoglobin A1c 8.6. LFTs: AST 37, ALT 42, alkaline phosphatase 98, phosphorus 4.2, magnesium 2, calcium 9.2, TSH is 18.1. Wound culture, Staph aureus. Blood cultures, negative. Lower extremity arterial Doppler, negative. Venous Doppler, negative. Chest x-ray, negative for any infiltrates. Ultrasound of the abdomen, negative. HOSPITAL COURSE: The patient was admitted to the hospital for bilateral lower extremity cellulitis. The patient was started on Zosyn and vancomycin. The patient was evaluated by ID and Wound Care nurse. The patient's symptoms improving on IV antibiotics. Dr. Burch recommended long-term IV antibiotics. The patient underwent PEG placement. Service Line Layer made arrangement for possible subacute rehab care center at [facility] for completion of IV antibiotics for one week as recommended by ID. The patient is otherwise hemodynamically stable. The patient is advised to follow up with PMD as outpatient. CONDITION UPON DISCHARGE: The patient is alert, awake, and oriented x3, and hemodynamically stable. DISCHARGE INSTRUCTIONS: Follow up with PMD. Follow up with Endocrinology. DISCHARGE MEDICATIONS: Allopurinol 100 mg daily, Lasix 20 mg daily, amlodipine 10 mg daily, Ancef 100 mg IV every 8 hours, glipizide 2.5 mg daily, and Synthroid 100 mcg daily. DISCHARGE DIET: Heart healthy, low sodium, low cholesterol 1800 calorie ADA diet. Harris Mitchell MD
== END 2018-08-15 17:53 | DRG 603 ==
LOC: C.ER 23:08 → C.6T 08-07 01:38
PROVIDERS: ADMIT Internal Medicine; ATTEND Internal Medicine
DX: L03.115 Cellulitis of right lower limb (principal); L03.116 Cellulitis of left lower limb; I87.2 Venous insufficiency (chronic) (peripheral); E11.65 Type 2 diabetes mellitus with hyperglycemia; E03.9 Hypothyroidism, unspecified; I10 Essential (primary) hypertension; M10.9 Gout, unspecified; Z98.51 Tubal ligation status; Z83.3 Family history of diabetes mellitus; Z90.49 Acquired absence of other specified parts of digestive tract